=== PATIENT | female | born 1960 | race Caucasian/White ===

== ENCOUNTER 2018-03-22 23:45 | Emergency (ER) | payer MEDICAID ==
[~2018-03-22] VITALS: Ht 165.1 cm; Wt 70.0 kg
[~2018-03-22 23:45] MED LIST: ASPI-1264 PO; ATOR20TA PO; BUPR1PAT TD; CALC600T2 PO; CIME800T PO; CLOP75TA15 PO; ERGO500014 PO; LISI40TA4 PO; MELO15TA13 PO; NORT25CA5 PO; ONDA4TAB9 SL; PREVCR VG; RANI25VI; SYN0.088T PO; TIZA-248 PO; VARE0.5T PO
[2018-03-23 00:44] VITALS: BP 125/78
== END 2018-03-23 01:51 | disposition home or self-care (01) ==
LOC: ER 23:46
DX: S93.601A Unspecified sprain of right foot, initial encounter (principal); I10 Essential (primary) hypertension; F17.200 Nicotine dependence, unspecified, uncomplicated; J44.9 Chronic obstructive pulmonary disease, unspecified; E03.9 Hypothyroidism, unspecified; Z90.710 Acquired absence of both cervix and uterus; Z98.890 Other specified postprocedural states; Z79.82 Long term (current) use of aspirin; Z79.899 Other long term (current) drug therapy; W16.012A Fall into swimming pool striking water surface causing other injury, initial encounter; Y93.11 Activity, swimming; Y92.89 Other specified places as the place of occurrence of the external cause; Y99.8 Other external cause status
CPT/HCPCS: 73660; 99284; A6449

== ENCOUNTER 2019-11-08 20:23 | Inpatient (IN) | payer MEDICAID ==
[~2019-11-08] VITALS: Ht 165.1 cm; Wt 68.0 kg
[~2019-11-08 20:23] MED LIST changes: -TIZA-248 PO; +TIZA4TAB5 PO
[2019-11-08] MEDS ORDERED: acetaminophen 325mg tablet PO ONE (20:45)
[2019-11-08] MEDS ORDERED: methylPREDNISolone sod succ 125mg/2ml vial IV ONE (21:00)
[2019-11-08] MEDS ORDERED: azithromycin/NS 500mg/250ml 250 ML IV ONE (21:00)
[2019-11-08] MEDS ORDERED: CefTRIAXone/D5W-Rocephin 1gm 50 ML IV ONE (21:00)
[2019-11-08] MEDS ORDERED: ipratropium/albuterol 3ml nebule NEB ONE (21:00)
[2019-11-08 21:10] LABS: EOSINOPHILS % (AUTO) 0 % (0-6); HEMOGLOBIN 14.2 g/dl (12.0-16.0); LYMPHOCYTES # (AUTO) 0.3 X10'3 (1.1-4.8); MONOCYTES # (AUTO) 0.4 X10'3 (0-0.9); NEUTROPHILS # (AUTO) 7.6 X10'3 (1.8-7.7)
[2019-11-08 21:13] LABS: BASOPHILS % (AUTO) 0.2 % (0-1); LYMPHOCYTES % (AUTO) 3.6 % (21-51); MEAN CORPUSCULAR HGB CONC 34.7 g/dL (33.0-36.5); MEAN CORPUSCULAR VOLUME 86.4 FL (78-98); MEAN PLATELET VOLUME 7.5 FL (7.4-10.4); MONOCYTES % (AUTO) 4.8 % (2-12); NEUTROPHILS % (AUTO) 91.4 % (42-75); PLATELET COUNT 173 X10'3 (140-440); RED BLOOD COUNT 4.74 X10'6 (4.20-5.60); RED CELL DISTRIBUTION WIDTH 14.8 % (11.5-14.5); WHITE BLOOD COUNT 8.3 X10'3 (4.5-11.0)
[2019-11-08 21:17] LABS: ALANINE AMINOTRANSFERASE 24 U/L (12-78); ALBUMIN 3.6 G/DL (3.4-5.0); ALBUMIN/GLOBULIN RATIO 0.9 (1.1-1.5); ALKALINE PHOSPHATASE 143 IU/L (46-116); ANION GAP 10 (8-16); ASPARTATE AMINO TRANSFERASE 31 U/L (10-37); BILIRUBIN,TOTAL 0.3 MG/DL (0.1-1.0); BLOOD UREA NITROGEN 15 MG/DL (7-18); CALCIUM 8.7 MG/DL (8.5-10.1); CHLORIDE 95 MMOL/L (99-107); CREATININE 1.07 MG/DL (0.40-0.90); GLUCOSE 121 MG/DL (70-104); SODIUM 128 MMOL/L (135-145); TOTAL CARBON DIOXIDE 23.2 MMOL/L (24-32); TOTAL PROTEIN 7.7 G/DL (6.4-8.2); eGFR 52 ML/MIN
[2019-11-08] MEDS ORDERED: ondansetron/PF 4mg/2ml inj IV ONE (21:30)
[2019-11-08] MEDS ORDERED: oseltamivir phos 75mg capsule PO ONE (21:35)
[2019-11-08 21:42] LABS: PARTIAL THROMBOPLASTIN TIME 36 SECONDS (22-32)
[2019-11-08] MEDS ORDERED: ondansetron/PF 4mg/2ml inj IV PRN (22:20)
[2019-11-08] MEDS ORDERED: ipratropium/albuterol 3ml nebule NEB PRN (22:20)
[2019-11-08] MEDS ORDERED: magnesium 2GM in 50ml NS 50 ML IV PRN (22:20)
[2019-11-08] MEDS ORDERED: potassium Cl 20 mEq SR tablet PO PRN ×2 (22:20)
[2019-11-08] MEDS ORDERED: magnesium Cl slow-release 64mg tablet PO PRN (22:20)
[2019-11-08] MEDS ORDERED: magnesium hydroxide 30ml (MOM) UD suspension PO PRN (22:20)
[2019-11-08] MEDS ORDERED: mag hydrox/Alum hydrox/simeth 30ml oral suspension PO PRN (22:20)
[2019-11-08] MEDS ORDERED: magnesium 4gm in 100ml NS 100 ML IV PRN (22:20)
[2019-11-08] MEDS ORDERED: potassium CL 10mEq/100ml bag 100 ML IV PRN ×2 (22:20)
[2019-11-08] MEDS ORDERED: acetaminophen 325mg tablet PO PRN (22:20)
[2019-11-08] MEDS ORDERED: PRAV40TA3 PO (22:22)
[2019-11-08] MEDS ORDERED: CHOL100025 PO (22:22)
[2019-11-08] MEDS ORDERED: MAGN500C16 PO (22:22)
[2019-11-08] MEDS ORDERED: ESTR0.5T PO (22:22)
[2019-11-08] MEDS ORDERED: DILT120C19 PO (22:22)
[2019-11-08] MEDS ORDERED: CALC600T82 PO (22:22)
[2019-11-08] MEDS ORDERED: LISI-600 PO (22:22)
[2019-11-08] MEDS ORDERED: ASCO500C17 PO (22:22)
--- NOTE | 2019-11-08 23:30 | NUR ---
Patient in ER to be transferred to room GEGE 349. I have received report from DEB Estrada and had the opportunity to ask questions and assume patient care.
[2019-11-08 23:55] VITALS: BP 119/77
[2019-11-09] MEDS ORDERED: tizanidine 4mg tablet PO PRN (00:20)
[2019-11-09 05:58] LABS: BASOPHILS % (AUTO) 0.1 % (0-1); EOSINOPHILS % (AUTO) 0 % (0-6); HEMOGLOBIN 13.8 g/dl (12.0-16.0); LYMPHOCYTES # (AUTO) 0.4 X10'3 (1.1-4.8); LYMPHOCYTES % (AUTO) 4.3 % (21-51); MEAN CORPUSCULAR HEMOGLOBIN 29.7 PG (27.0-31.0); MEAN CORPUSCULAR HGB CONC 34.4 g/dL (33.0-36.5); MEAN CORPUSCULAR VOLUME 86.2 FL (78-98); MEAN PLATELET VOLUME 7.6 FL (7.4-10.4); MONOCYTES # (AUTO) 0.5 X10'3 (0-0.9); MONOCYTES % (AUTO) 4.7 % (2-12); NEUTROPHILS % (AUTO) 90.9 % (42-75); PLATELET COUNT 172 X10'3 (140-440); RED BLOOD COUNT 4.64 X10'6 (4.20-5.60); RED CELL DISTRIBUTION WIDTH 14.8 % (11.5-14.5); WHITE BLOOD COUNT 9.9 X10'3 (4.5-11.0)
[2019-11-09 06:07] LABS: ALBUMIN 3.2 G/DL (3.4-5.0); ANION GAP 8 (8-16); BLOOD UREA NITROGEN 14 MG/DL (7-18); BUN/CREATININE RATIO 13.9 (6.6-38.0); CALCIUM 8.4 MG/DL (8.5-10.1); CHLORIDE 96 MMOL/L (99-107); CREATININE 1.01 MG/DL (0.40-0.90); GLUCOSE 136 MG/DL (70-104); MAGNESIUM 1.8 MG/DL (1.5-2.4); POTASSIUM 4.3 MMOL/L (3.5-5.1); SODIUM 130 MMOL/L (135-145); TOTAL CARBON DIOXIDE 25.6 MMOL/L (24-32); eGFR 56 ML/MIN
--- NOTE | 2019-11-09 06:24 | NUR ---
Problems reprioritized. Patient report given, questions answered & plan of care reviewed with DEB Sandoval.
[2019-11-09] MEDS: K and/or MAG REPLACEMENT MC SCH ×2 (06:35→19:16)
--- NOTE | 2019-11-09 06:48 | NUR ---
Patient in room GEGE 349. I have received report from DEVENDRA BOYD and had the opportunity to ask questions and assume patient care.
[2019-11-09 07:00] VITALS: BP 141/83
[2019-11-09] MEDS: ipratropium/albuterol 3ml nebule NEB SCH ×4 (07:34→20:12)
[2019-11-09] MEDS: diltiazem CD 120mg capsule (once-daily) PO SCH (07:49)
[2019-11-09] MEDS: ascorbic acid 500mg tablet PO SCH (07:49)
[2019-11-09] MEDS: levoTHYROXINE 75mcg tablet PO SCH (07:49)
[2019-11-09] MEDS: predniSONE 20 mg tablet PO SCH (07:49)
[2019-11-09] MEDS: CefTRIAXone 2gm/D5W 50ml 50 ML IV SCH (07:49)
[2019-11-09] MEDS: azithromycin 250mg tablet PO SCH (07:49)
[2019-11-09] MEDS: lactobacillus rhamnosus 10,000 MMU CELLS/CAPSULE PO SCH ×2 (07:49→20:55)
[2019-11-09] MEDS: aspirin 325mg tablet PO SCH (07:49)
[2019-11-09] MEDS: vitamin D (cholecalciferol) 1,000 unit tablet PO SCH (07:50)
[2019-11-09] MEDS: lisinopril 20mg tablet PO SCH (07:50)
[2019-11-09] MEDS: pravastatin 40mg tablet PO SCH (07:50)
[2019-11-09] MEDS: calcium carbonate 500mg tablet PO SCH (07:50)
[2019-11-09] MEDS: enoxaparin 40mg/0.4ml syringe SQ SCH (07:51)
[2019-11-09] MEDS: MELOXICAM 15 MG PO SCH (08:00)
[2019-11-09] MEDS: acetaminophen 325mg tablet PO PRN ×2 (08:07→20:55)
--- NOTE | 2019-11-09 08:41 | NUR ---
Primary RN took patient off oxygen and I rechecked patients oxygen level and she was 87% on RA. Placed patient back on 2L oxygen via NC
[2019-11-09 11:57] VITALS: BP 113/65
[2019-11-09 18:00] VITALS: BP 118/78
--- NOTE | 2019-11-09 18:29 | NUR ---
Problems reprioritized. Patient report given, questions answered & plan of care reviewed with BLAKE RN.
--- NOTE | 2019-11-09 18:30 | NUR ---
Patient in room GEGE 349. I have received report from Lori BOYD and had the opportunity to ask questions and assume patient care.
[2019-11-09] MEDS ORDERED: nortriptyline 25mg capsule PO SCH (21:00)
[2019-11-10] VITALS: BP 92/64
--- NOTE | 2019-11-10 06:13 | NUR ---
Problems reprioritized. Patient report given, questions answered & plan of care reviewed with Lori BOYD.
[2019-11-10 06:17] LABS: BASOPHILS % (AUTO) 0.1 % (0-1); EOSINOPHILS % (AUTO) 0 % (0-6); HEMATOCRIT 37.1 % (35.0-45.0); HEMOGLOBIN 12.7 g/dl (12.0-16.0); LYMPHOCYTES % (AUTO) 10.9 % (21-51); MEAN CORPUSCULAR HEMOGLOBIN 29.3 PG (27.0-31.0); MEAN CORPUSCULAR HGB CONC 34.3 g/dL (33.0-36.5); MEAN CORPUSCULAR VOLUME 85.6 FL (78-98); MEAN PLATELET VOLUME 7.5 FL (7.4-10.4); MONOCYTES # (AUTO) 0.5 X10'3 (0-0.9); MONOCYTES % (AUTO) 5.8 % (2-12); NEUTROPHILS # (AUTO) 7.7 X10'3 (1.8-7.7); NEUTROPHILS % (AUTO) 83.2 % (42-75); PLATELET COUNT 171 X10'3 (140-440); RED BLOOD COUNT 4.34 X10'6 (4.20-5.60); RED CELL DISTRIBUTION WIDTH 14.4 % (11.5-14.5); WHITE BLOOD COUNT 9.2 X10'3 (4.5-11.0)
--- NOTE | 2019-11-10 06:26 | NUR ---
Patient in room GEGE 349. I have received report from BLAKE BOYD and had the opportunity to ask questions and assume patient care.
[2019-11-10 06:46] LABS: ALBUMIN 2.8 G/DL (3.4-5.0); ANION GAP 10 (8-16); BLOOD UREA NITROGEN 21 MG/DL (7-18); BUN/CREATININE RATIO 23.1 (6.6-38.0); CALCIUM 8.7 MG/DL (8.5-10.1); CHLORIDE 95 MMOL/L (99-107); CREATININE 0.91 MG/DL (0.40-0.90); GLUCOSE 114 MG/DL (70-104); MAGNESIUM 1.7 MG/DL (1.5-2.4); POTASSIUM 3.4 MMOL/L (3.5-5.1); SODIUM 130 MMOL/L (135-145); TOTAL CARBON DIOXIDE 25.4 MMOL/L (24-32); eGFR 63 ML/MIN
[2019-11-10 07:00] VITALS: BP 98/52
[2019-11-10] MEDS: ipratropium/albuterol 3ml nebule NEB SCH ×2 (07:03→10:46)
[2019-11-10] MEDS: K and/or MAG REPLACEMENT MC SCH (08:00)
[2019-11-10] MEDS: diltiazem CD 120mg capsule (once-daily) PO SCH (08:00)
[2019-11-10] MEDS: MELOXICAM 15 MG PO SCH (08:00)
[2019-11-10] MEDS: lisinopril 20mg tablet PO SCH (08:00)
[2019-11-10] MEDS: calcium carbonate 500mg tablet PO SCH (08:47)
[2019-11-10] MEDS: azithromycin 250mg tablet PO SCH (08:47)
[2019-11-10] MEDS: vitamin D (cholecalciferol) 1,000 unit tablet PO SCH (08:47)
[2019-11-10] MEDS: ascorbic acid 500mg tablet PO SCH (08:47)
[2019-11-10] MEDS: aspirin 325mg tablet PO SCH (08:47)
[2019-11-10] MEDS: CefTRIAXone 2gm/D5W 50ml 50 ML IV SCH (08:48)
[2019-11-10] MEDS: levoTHYROXINE 75mcg tablet PO SCH (08:49)
[2019-11-10] MEDS: predniSONE 20 mg tablet PO SCH (08:50)
[2019-11-10] MEDS: enoxaparin 40mg/0.4ml syringe SQ SCH (08:50)
[2019-11-10] MEDS: lactobacillus rhamnosus 10,000 MMU CELLS/CAPSULE PO SCH (08:50)
[2019-11-10] MEDS: pravastatin 40mg tablet PO SCH (08:51)
--- NOTE | 2019-11-10 09:40 | NUR ---
O2 Sat at rest on room air:___% If below 89%: Recovery O2 Sat at rest on ___LPM:___%:___% via (mask/nasal cannula, etc..) No further documentation is necessary. If O2 Sat did not drop below 89% on room air,ambulate patient on room air. O2 Sat while ambulating on room air:_86__% Recovery O2 Sat while ambulating on _2__LPM:_90__% No further documentation is necessary. If patient does not drop below 89% while ambulating, he/she does not qualify for home O2.
[2019-11-10] MEDS ORDERED: ALBU18HF2 IH (10:15)
[2019-11-10] MEDS ORDERED: CEFD300C3 PO (10:15)
[2019-11-10] MEDS ORDERED: AZI25OT PO (10:15)
[2019-11-10] MEDS ORDERED: FLUT1DIS4 INH (10:15)
--- NOTE | 2019-11-10 10:29 | NUR ---
O2 Sat at rest on room air:_88__% If below 89%: Recovery O2 Sat at rest on ___LPM:___%:___% via (mask/nasal cannula, etc..) No further documentation is necessary. If O2 Sat did not drop below 89% on room air,ambulate patient on room air. O2 Sat while ambulating on room air:_86__% Recovery O2 Sat while ambulating on __2_LPM:_90-94__% No further documentation is necessary. If patient does not drop below 89% while ambulating, he/she does not qualify for home O2.
--- NOTE | 2019-11-10 12:15 | NUR ---
PAGED DR NAPOLES PAGER ID: [phone] MESSAGE: JERRI MCRAE. BP . SURG BANNER [id number]
[2019-11-10 12:16] VITALS: BP 89/57
--- NOTE | 2019-11-10 13:10 | NUR ---
SPOKE TO DR NAPOLES RE DECREASED BP. STATES THAT PT IS OK TO DC HOWEVER SHE NEEDS TO MAKE FU APPT WITH PCP RE BP MEDS AND POSSIBLE ADJUSTMENTS. WILL NOTIFY PT.
[2019-11-10 13:27] VITALS: BP 113/71
--- NOTE | 2019-11-10 13:27 | NUR ---
CURRENT BP 113/71 HR 92
--- NOTE | 2019-11-10 15:02 | NUR ---
Called discharge prescription to [facility] to Pharmacist Emeka.
--- NOTE | 2019-11-10 15:22 | NUR ---
PT DISCHARGED IN STABLE CONDITION. LEFT IN PRIVATE VEHICLE WITH FAMILY. IV DC CANULA INTACT. FOLLOW UP INSTRUCTIONS GIVEN, ALL QUESTIONS ANSWERED. HOME 02 SENT WITH PT. ALL BELONGINGS IN HAND. Addendum: 11/10/19 at 1523 by Gilma Perez RN Amended: Links added.
== END 2019-11-10 15:01 | disposition home or self-care (01) | DRG 720 ==
LOC: ER 20:24 → ED HOLD 22:24 → SUR 3N 23:55
PROVIDERS: ADMIT Hospitalist; ATTEND Hospitalist
DX: A41.9 Sepsis, unspecified organism (principal); E87.1 Hypo-osmolality and hyponatremia; Z99.81 Dependence on supplemental oxygen; E03.9 Hypothyroidism, unspecified; E78.5 Hyperlipidemia, unspecified; F17.200 Nicotine dependence, unspecified, uncomplicated; I10 Essential (primary) hypertension; J44.1 Chronic obstructive pulmonary disease with (acute) exacerbation; Z82.49 Family history of ischemic heart disease and other diseases of the circulatory system; Z90.710 Acquired absence of both cervix and uterus; Z79.899 Other long term (current) drug therapy; Z79.82 Long term (current) use of aspirin
CPT/HCPCS: 36415; 71045; 80048; 80053; 83605; 83735; 83880; 84145; 84484; 85025; 85610; 85730; 87040; 87081; 87502; 87503; 93005; 94640; 94760; 96365; 96375; 99285; G0378; J0456; J0696; J1650; J2405; J2930; J7512

== ENCOUNTER 2020-01-23 09:38 | Outpatient (CLI) | payer MEDICAID ==
[~2020-01-23 09:38] MED LIST changes: +ALBU18HF2 IH; +ASCO500C17 PO; -ATOR20TA PO; -BUPR1PAT TD; -CALC600T2 PO; +CALC600T82 PO; +CHOL100025 PO; -CIME800T PO; -CLOP75TA15 PO; +DILT120C19 PO; +DOCU100C40 PO; -ERGO500014 PO; +ESTR0.5T PO; +LACT1CAP26 PO; +LEVO500T2 PO; +LISI-600 PO; -LISI40TA4 PO; +MAGN500C16 PO; -MELO15TA13 PO; +METH12DI SQ; -ONDA4TAB9 SL; +PRAV40TA3 PO; -PREVCR VG; -RANI25VI; +TIOT4MIS2 INH; -VARE0.5T PO
[2020-01-23] MEDS ORDERED: iohexol 300mg/ml 100ml inj. ONE (10:00)
== END 2020-01-23 23:59 | disposition home or self-care (01) ==
LOC: 64 CT 09:38
PROVIDERS: ATTEND Surgery
DX: N20.0 Calculus of kidney (principal); K80.20 Calculus of gallbladder without cholecystitis without obstruction; I71.4 Abdominal aortic aneurysm, without rupture
CPT/HCPCS: 74177; Q9967

== ENCOUNTER 2020-09-28 16:29 | Inpatient (IN) | payer MEDICAID ==
[~2020-09-28] VITALS: Ht 165.1 cm; Wt 68.2 kg
[~2020-09-28 16:29] MED LIST changes: -LEVO500T2 PO
[2020-09-28 17:44] LABS: BASOPHILS % (AUTO) 0.2 % (0-1); EOSINOPHILS % (AUTO) 0.5 % (0-6); LYMPHOCYTES # (AUTO) 0.8 X10'3 (1.1-4.8); MEAN CORPUSCULAR HEMOGLOBIN 30.9 PG (27.0-31.0); MEAN CORPUSCULAR HGB CONC 34.6 g/dL (33.0-36.5); MEAN CORPUSCULAR VOLUME 89.2 FL (78-98); MEAN PLATELET VOLUME 7.3 FL (7.4-10.4); MONOCYTES # (AUTO) 0.8 X10'3 (0-0.9); MONOCYTES % (AUTO) 9.7 % (2-12); NEUTROPHILS # (AUTO) 6.8 X10'3 (1.8-7.7); NEUTROPHILS % (AUTO) 80.6 % (42-75); PLATELET COUNT 311 X10'3 (140-440); WHITE BLOOD COUNT 8.5 X10'3 (4.5-11.0)
[2020-09-28 17:55] LABS: ALANINE AMINOTRANSFERASE 19 U/L (12-78); ALBUMIN 3.9 G/DL (3.4-5.0); ALBUMIN/GLOBULIN RATIO 0.9 (1.1-1.5); ALKALINE PHOSPHATASE 158 IU/L (46-116); ANION GAP 10 (8-16); ASPARTATE AMINO TRANSFERASE 13 U/L (10-37); BILIRUBIN,TOTAL 0.5 MG/DL (0.1-1.0); BLOOD UREA NITROGEN 53 MG/DL (7-18); BUN/CREATININE RATIO 22.8 (6.6-38.0); CALCIUM 9.4 MG/DL (8.5-10.1); CHLORIDE 89 MMOL/L (99-107); CREATININE 2.32 MG/DL (0.40-0.90); GLUCOSE 139 MG/DL (70-104); LIPASE 60 U/L (73-393); POTASSIUM 4.1 MMOL/L (3.5-5.1); SODIUM 133 MMOL/L (135-145); TOTAL CARBON DIOXIDE 34.4 MMOL/L (24-32); TOTAL PROTEIN 8.3 G/DL (6.4-8.2); eGFR 21 ML/MIN
[2020-09-28] MEDS ORDERED: ondansetron/PF 4mg/2ml inj IV ONE (18:00)
[2020-09-28] MEDS ORDERED: morphine 4 MG/ML inj SYRINge IV ONE (18:00)
[2020-09-28] MEDS ORDERED: normal saline 1000ml 1,000 ML IV ONE ×2 (18:00)
--- NOTE | 2020-09-28 18:16 | NUR ---
Pt medicated as ordered. Lab at bedside for lactic and BC draw.
--- NOTE | 2020-09-28 18:56 | NUR ---
PT JUST RETURNED FROM CT. PT REPORTS CONTINUED NAUSEA AND PAIN TO ABD OF 8 OUT OF 10.
[2020-09-28 19:17] LABS: CLARITY,URINE CLEAR (Clear); COLOR,URINE YELLOW (Yellow); GLUCOSE, URINE NEGATIVE (Neg); KETONES,URINE 15 mg/dl (Neg); LEUKOCYTE ESTERASE ,URINE NEGATIVE (Neg); NITRITES, URINE NEGATIVE (Neg); OCCULT BLOOD,URINE NEGATIVE (Neg); PROTEIN,URINE 30 mg/dl (Neg); UROBILINOGEN,URINE 0.2 E.U/dL (0.2-1.0)
[2020-09-28 19:20] LABS: UA COLLECTION TYPE STRAIGHT CATH
--- NOTE | 2020-09-28 19:21 | NUR ---
PT TO BE ADMITTED, JUST COLLECTED URINE VIA STRAIGHT CATH. ORDERS TO PLACE NG TUBE. REESE DE LEON TALKING WITH PT NOW ABOUT PLAN OF CARE.
[2020-09-28 19:34] LABS: BACTERIA,URINE FEW /HPF (Neg); RBC,URINE NONE SEEN /HPF (0-2); SQUAMOUS EPITHELIAL CELL,UR MODERATE /LPF (FEW); WBC,URINE NONE SEEN /HPF (0-4)
[2020-09-28] MEDS ORDERED: magnesium 4gm in 100ml NS 100 ML IV PRN (19:35)
[2020-09-28] MEDS ORDERED: magnesium hydroxide 30ml (MOM) UD suspension PO PRN (19:35)
[2020-09-28] MEDS ORDERED: potassium Cl 20 mEq SR tablet PO PRN ×2 (19:35)
[2020-09-28] MEDS ORDERED: magnesium 2GM in 50ml NS 50 ML IV PRN (19:35)
[2020-09-28] MEDS ORDERED: mag hydrox/Alum hydrox/simeth 30ml oral suspension PO PRN (19:35)
[2020-09-28] MEDS ORDERED: potassium Cl 40MEQ/1/2NS 520ml 520 ML IV PRN ×2 (19:35)
[2020-09-28] MEDS ORDERED: magnesium Cl slow-release 64mg tablet PO PRN (19:35)
[2020-09-28] MEDS ORDERED: acetaminophen 325mg tablet PO PRN (19:35)
--- NOTE | 2020-09-28 20:12 | NUR ---
Brooke Bernstein, [facility], [facility] [phone].
--- NOTE | 2020-09-28 20:15 | NUR ---
i spoke to daughter delma and updated on plan for surgery. she will tell the rest of the family.
--- NOTE | 2020-09-28 20:18 | NUR ---
preop coags and ekg just ordered. pt getting undressed now. she reports that Dr. Gannon toldl her he would be taking her to OR around 10 pm
[2020-09-28] MEDS ORDERED: MELO-102 PO (20:23)
[2020-09-28 20:32] LABS: PARTIAL THROMBOPLASTIN TIME 28 SECONDS (22-32)
[2020-09-28] MEDS: ondansetron/PF 4mg/2ml inj IV PRN (20:50)
[2020-09-28] MEDS: morphine 2 MG/ML inj. syringe IV PRN (20:50)
--- NOTE | 2020-09-28 20:55 | NUR ---
Pt has ipa 360a. Per OBIEE REPORT DEVELOPERSean BOYD, it will be a few hrs before they take her. rn chargeJolene BOYD , updated.
[2020-09-28] MEDS ORDERED: sevoflurane 250ml liquid IH ONE (22:46)
[2020-09-28] MEDS ORDERED: fentaNYL /PF 50mcg/ml 5ml ampule ONE (22:52)
[2020-09-28] MEDS ORDERED: propofol inj 20 ML IV ONE (22:52)
[2020-09-28] MEDS ORDERED: rocuronium 10mg/ml inj IV ONE (22:52)
[2020-09-28] MEDS ORDERED: midazolam 2 mg/2 ml injection ONE (22:52)
[2020-09-28] MEDS ORDERED: ceFOXitin 1000 MG inj ONE (23:11)
[2020-09-28] MEDS ORDERED: neostigmine methylsulfate 1 MG/ML 10ml vial ONE (23:38)
[2020-09-28] MEDS ORDERED: glycopyrrolate 0.2mg/ml inj ONE (23:39)
[2020-09-28 23:50] VITALS: BP 182/95
[2020-09-28 23:55] VITALS: BP 182/95
--- NOTE | 2020-09-28 23:55 | NUR ---
Received from OR via BED , accompanied by Anesthesiologist DR VALENCIA and report given by Anesthesiolgist. PATIENT WAKING UP, DENIES PAIN, V/S WNL, NEUROVASCULAR CHECKS INTACT, 20G PIV RUE, SCD ON,ABD PAD DRESSING TO ABDOMEN ABDOMEN CDI.
--- NOTE | 2020-09-28 23:58 | NUR ---
NG TO LEFT NARES LWS INTIRM,ITIENT
[2020-09-29] VITALS (16 sets, daily range): BP systolic 78–181; BP diastolic 44–90
[2020-09-29] MEDS ORDERED: morphine 4 MG/ML inj SYRINge IV PRN (00:20)
[2020-09-29] MEDS ORDERED: meperidine/PF 25mg/ml syringe IV PRN (00:20)
[2020-09-29] MEDS ORDERED: meperidine/PF 25mg/ml syringe ONE (00:27)
--- NOTE | 2020-09-29 00:35 | NUR ---
PATIENT A&OX4, 3/10 PAIN, V/S WNL, NEUROVASCULAR CHECKS INTACT, 20G PIV RUE, SCD ON,ABD PAD DRESSING TO ABDOMEN ABDOMEN CDI. F/C DRAINING CLEAR YELLOW URINE. NG TUBE TO RIGHT NARES LWS INTERMITTINT. PATIENT TAKEN TO 360A WITH ALL BELONGINGS AND HOOKED UP TO MONITORS IN ROOM AND REPORT GIVEN TO RN WHO HAS TAKEN OVER PATIENT CARE.
--- NOTE | 2020-09-29 00:45 | NUR ---
PATIENT ADMITTED TO ROOM 360A FROM RECOVERY ROOM AFTER EXPLORATORY LAPAROTOMY AND LYSIS OF ADHESION WAS DONE BY DR. VALERA. PLACED COMFORTABLE IN BED. VITAL SIGNS MONITORED PER POST OP FREQUENT VITALS.
[2020-09-29] MEDS: K and/or MAG REPLACEMENT MC SCH ×3 (00:59→19:56)
[2020-09-29] MEDS: normal saline 1000ml 1,000 ML IV SCH ×3 (01:01→16:45)
[2020-09-29] MEDS: morphine 2 MG/ML inj. syringe IV PRN ×4 (01:31→20:14)
[2020-09-29] MEDS ORDERED: albuterol 2.5 MG/3 ML nebule NEB PRN (05:05)
--- NOTE | 2020-09-29 06:22 | NUR ---
Problems reprioritized. Patient report given, questions answered & plan of care reviewed with DEMETRIO BOYD.
[2020-09-29 06:48] LABS: BASOPHILS % (AUTO) 0.2 % (0-1); EOSINOPHILS # (AUTO) 0.1 X10'3 (0-0.9); EOSINOPHILS % (AUTO) 2.3 % (0-6); HEMATOCRIT 42.8 % (35.0-45.0); HEMOGLOBIN 14.6 g/dl (12.0-16.0); LYMPHOCYTES # (AUTO) 0.7 X10'3 (1.1-4.8); LYMPHOCYTES % (AUTO) 13.3 % (21-51); MEAN CORPUSCULAR HEMOGLOBIN 31.1 PG (27.0-31.0); MEAN CORPUSCULAR HGB CONC 34.2 g/dL (33.0-36.5); MEAN PLATELET VOLUME 7.8 FL (7.4-10.4); MONOCYTES # (AUTO) 0.4 X10'3 (0-0.9); MONOCYTES % (AUTO) 7.4 % (2-12); NEUTROPHILS # (AUTO) 3.9 X10'3 (1.8-7.7); NEUTROPHILS % (AUTO) 76.8 % (42-75); PLATELET COUNT 245 X10'3 (140-440); RED CELL DISTRIBUTION WIDTH 13.9 % (11.5-14.5); WHITE BLOOD COUNT 5.1 X10'3 (4.5-11.0)
[2020-09-29 07:07] LABS: ALANINE AMINOTRANSFERASE 14 U/L (12-78); ALBUMIN 2.7 G/DL (3.4-5.0); ALBUMIN/GLOBULIN RATIO 0.8 (1.1-1.5); ALKALINE PHOSPHATASE 114 IU/L (46-116); ANION GAP 6 (8-16); ASPARTATE AMINO TRANSFERASE 12 U/L (10-37); BILIRUBIN,TOTAL 0.4 MG/DL (0.1-1.0); BLOOD UREA NITROGEN 45 MG/DL (7-18); BUN/CREATININE RATIO 35.7 (6.6-38.0); CALCIUM 7.9 MG/DL (8.5-10.1); CHLORIDE 102 MMOL/L (99-107); CREATININE 1.26 MG/DL (0.40-0.90); GLUCOSE 102 MG/DL (70-104); MAGNESIUM 2.9 MG/DL (1.5-2.4); POTASSIUM 3.5 MMOL/L (3.5-5.1); SODIUM 138 MMOL/L (135-145); TOTAL CARBON DIOXIDE 29.6 MMOL/L (24-32); TOTAL PROTEIN 6.1 G/DL (6.4-8.2); eGFR 43 ML/MIN
[2020-09-29] MEDS: diltiazem CD 120mg capsule (once-daily) PO SCH (07:58)
[2020-09-29] MEDS: levoTHYROXINE 75mcg tablet PO SCH (07:58)
[2020-09-29] MEDS: nortriptyline 25mg capsule PO SCH (07:58)
[2020-09-29] MEDS: ipratropium 0.5 MG/2.5ML nebule NEB SCH ×4 (08:00→20:16)
--- NOTE | 2020-09-29 11:09 | NUR ---
PAGE SENT TO RT: PATIENT HAS A DAILY NEB TX THAT WAS DUE AT 0800. THANKS! Addendum: 09/29/20 at 1111 by Angella Lee RN Severiano MCRAEA: PATIENT HAS A DAILY NEB TX THAT WAS DUE AT 0800. THANKS!
--- NOTE | 2020-09-29 13:03 | NUR ---
REMOVED NG TUBE AND JACQUES CATHETER. PATIENT TOLERATED WELL.
[2020-09-29] MEDS ORDERED: normal saline 250ml IV soln 250 ML IV ONE (13:10)
--- NOTE | 2020-09-29 13:20 | NUR ---
PAGE SENT TO RT: Severiano MCRAEA: PATIENT REQUESTING HER DAILY NEB TREATMENT. THANKS
--- NOTE | 2020-09-29 18:20 | NUR ---
Problems reprioritized. Patient report given, questions answered & plan of care reviewed with DEB OSEGUERA.
--- NOTE | 2020-09-29 18:30 | NUR ---
Patient in room GEGE 360. I have received report from DEMETRIO BOYD and had the opportunity to ask questions and assume patient care.
--- NOTE | 2020-09-29 20:00 | NUR ---
CORRECTION FOR LAST BOWEL MOVEMENT 09/23/20 Addendum: 09/30/20 at 0649 by Roslyn Thompson RN Amended: Links added.
[2020-09-29] MEDS: enoxaparin 40mg/0.4ml syringe SUBCUT SCH (20:05)
[2020-09-30] VITALS: BP 96/56
[2020-09-30] MEDS: ipratropium 0.5 MG/2.5ML nebule NEB SCH ×4 (02:36→20:36)
[2020-09-30] MEDS: normal saline 1000ml 1,000 ML IV SCH ×3 (03:43→23:02)
[2020-09-30] MEDS: morphine 2 MG/ML inj. syringe IV PRN ×4 (03:44→23:10)
--- NOTE | 2020-09-30 06:30 | NUR ---
Problems reprioritized. Patient report given, questions answered & plan of care reviewed with FLOYD BOYD.
--- NOTE | 2020-09-30 06:45 | NUR ---
Patient in room GEGE 360A. I have received report from AYO ROLLINS RN and had the opportunity to ask questions and assume patient care.
[2020-09-30 07:00] VITALS: BP 133/62
[2020-09-30 07:50] LABS: BASOPHILS % (AUTO) 0.1 % (0-1); EOSINOPHILS # (AUTO) 0.4 X10'3 (0-0.9); HEMATOCRIT 40.1 % (35.0-45.0); HEMOGLOBIN 13.5 g/dl (12.0-16.0); LYMPHOCYTES # (AUTO) 0.5 X10'3 (1.1-4.8); LYMPHOCYTES % (AUTO) 7.7 % (21-51); MEAN CORPUSCULAR HEMOGLOBIN 31.1 PG (27.0-31.0); MEAN CORPUSCULAR HGB CONC 33.6 g/dL (33.0-36.5); MEAN CORPUSCULAR VOLUME 92.5 FL (78-98); MEAN PLATELET VOLUME 7.7 FL (7.4-10.4); MONOCYTES # (AUTO) 0.6 X10'3 (0-0.9); MONOCYTES % (AUTO) 9.1 % (2-12); NEUTROPHILS # (AUTO) 5.1 X10'3 (1.8-7.7); NEUTROPHILS % (AUTO) 77.1 % (42-75); PLATELET COUNT 197 X10'3 (140-440); RED BLOOD COUNT 4.33 X10'6 (4.20-5.60); RED CELL DISTRIBUTION WIDTH 14.3 % (11.5-14.5); WHITE BLOOD COUNT 6.6 X10'3 (4.5-11.0)
[2020-09-30] MEDS: K and/or MAG REPLACEMENT MC SCH ×2 (08:00→20:00)
[2020-09-30] MEDS: nortriptyline 25mg capsule PO SCH (08:21)
[2020-09-30] MEDS: diltiazem CD 120mg capsule (once-daily) PO SCH (08:23)
[2020-09-30] MEDS: levoTHYROXINE 75mcg tablet PO SCH (08:24)
[2020-09-30 08:27] LABS: ALANINE AMINOTRANSFERASE 18 U/L (12-78); ALBUMIN 2.3 G/DL (3.4-5.0); ALBUMIN/GLOBULIN RATIO 0.6 (1.1-1.5); ALKALINE PHOSPHATASE 103 IU/L (46-116); ANION GAP 13 (8-16); ASPARTATE AMINO TRANSFERASE 20 U/L (10-37); BILIRUBIN,TOTAL 0.4 MG/DL (0.1-1.0); BLOOD UREA NITROGEN 30 MG/DL (7-18); BUN/CREATININE RATIO 38.5 (6.6-38.0); CALCIUM 7.7 MG/DL (8.5-10.1); CHLORIDE 105 MMOL/L (99-107); CREATININE 0.78 MG/DL (0.40-0.90); GLUCOSE 65 MG/DL (70-104); MAGNESIUM 2.6 MG/DL (1.5-2.4); POTASSIUM 3.6 MMOL/L (3.5-5.1); SODIUM 140 MMOL/L (135-145); TOTAL CARBON DIOXIDE 21.8 MMOL/L (24-32); TOTAL PROTEIN 5.9 G/DL (6.4-8.2); eGFR 75 ML/MIN
[2020-09-30 11:00] VITALS: BP 86/56
--- NOTE | 2020-09-30 16:20 | NUR ---
Problems reprioritized. Patient report given, questions answered & plan of care reviewed with AYO ROLLINS RN.
--- NOTE | 2020-09-30 18:30 | NUR ---
Patient in room GEGE 360. I have received report from FLOYD BOYD and had the opportunity to ask questions and assume patient care.
[2020-09-30 20:00] VITALS: BP 102/68
[2020-09-30] MEDS: enoxaparin 40mg/0.4ml syringe SUBCUT SCH (20:14)
[2020-09-30] MEDS: ondansetron/PF 4mg/2ml inj IV PRN (23:14)
[2020-10-01] VITALS: BP 129/63
[2020-10-01] MEDS: ipratropium 0.5 MG/2.5ML nebule NEB SCH ×4 (03:00→21:17)
--- NOTE | 2020-10-01 06:30 | NUR ---
Problems reprioritized. Patient report given, questions answered & plan of care reviewed with ANY BOYD.
[2020-10-01 06:41] LABS: BASOPHILS % (AUTO) 0.1 % (0-1); EOSINOPHILS # (AUTO) 0.5 X10'3 (0-0.9); EOSINOPHILS % (AUTO) 7.7 % (0-6); HEMATOCRIT 40.8 % (35.0-45.0); HEMOGLOBIN 13.8 g/dl (12.0-16.0); LYMPHOCYTES # (AUTO) 0.5 X10'3 (1.1-4.8); LYMPHOCYTES % (AUTO) 8.1 % (21-51); MEAN CORPUSCULAR HEMOGLOBIN 30.8 PG (27.0-31.0); MEAN CORPUSCULAR HGB CONC 33.8 g/dL (33.0-36.5); MEAN CORPUSCULAR VOLUME 91.2 FL (78-98); MONOCYTES # (AUTO) 0.6 X10'3 (0-0.9); MONOCYTES % (AUTO) 9.9 % (2-12); NEUTROPHILS # (AUTO) 4.8 X10'3 (1.8-7.7); NEUTROPHILS % (AUTO) 74.2 % (42-75); PLATELET COUNT 203 X10'3 (140-440); RED BLOOD COUNT 4.47 X10'6 (4.20-5.60); RED CELL DISTRIBUTION WIDTH 13.9 % (11.5-14.5); WHITE BLOOD COUNT 6.5 X10'3 (4.5-11.0)
[2020-10-01 07:00] VITALS: BP 120/60
[2020-10-01 07:04] LABS: ALANINE AMINOTRANSFERASE 19 U/L (12-78); ALBUMIN 2.3 G/DL (3.4-5.0); ALBUMIN/GLOBULIN RATIO 0.6 (1.1-1.5); ALKALINE PHOSPHATASE 109 IU/L (46-116); ANION GAP 13 (8-16); ASPARTATE AMINO TRANSFERASE 18 U/L (10-37); BILIRUBIN,TOTAL 0.4 MG/DL (0.1-1.0); BLOOD UREA NITROGEN 18 MG/DL (7-18); BUN/CREATININE RATIO 26.5 (6.6-38.0); CALCIUM 8.7 MG/DL (8.5-10.1); CHLORIDE 104 MMOL/L (99-107); CREATININE 0.68 MG/DL (0.40-0.90); GLUCOSE 73 MG/DL (70-104); POTASSIUM 3.4 MMOL/L (3.5-5.1); SODIUM 139 MMOL/L (135-145); TOTAL CARBON DIOXIDE 22.4 MMOL/L (24-32); TOTAL PROTEIN 6.1 G/DL (6.4-8.2); eGFR 88 ML/MIN
[2020-10-01] MEDS: K and/or MAG REPLACEMENT MC SCH ×2 (08:00→20:00)
[2020-10-01] MEDS: morphine 2 MG/ML inj. syringe IV PRN (08:22)
[2020-10-01] MEDS: levoTHYROXINE 75mcg tablet PO SCH (08:22)
[2020-10-01] MEDS: nortriptyline 25mg capsule PO SCH (08:22)
[2020-10-01] MEDS: normal saline 1000ml 1,000 ML IV SCH ×2 (08:23→17:17)
[2020-10-01 11:00] VITALS: BP 89/56
[2020-10-01 11:46] VITALS: BP 88/50
[2020-10-01] MEDS: diltiazem CD 120mg capsule (once-daily) PO SCH (11:46)
--- NOTE | 2020-10-01 11:47 | NUR ---
BP checked manually, got 88/50, patient asymptomatic. BENITO Gutierrez reported to me that the BP reading she took was low. I notified Dr. Álvarez about this and that I did not even gave the Cardizem PO this am due to pattern of dropping BP after receiving Cardizem. He instructed me to d/c the Cardizem PO order.
--- NOTE | 2020-10-01 18:35 | NUR ---
Problems reprioritized. Patient report given, questions answered & plan of care reviewed with Best BOYD.
[2020-10-01 20:00] VITALS: BP 120/76
[2020-10-01] MEDS: enoxaparin 40mg/0.4ml syringe SUBCUT SCH (20:56)
[2020-10-02] VITALS: BP 150/71
[2020-10-02] MEDS: morphine 2 MG/ML inj. syringe IV PRN ×5 (01:00→16:06)
[2020-10-02] MEDS: ipratropium 0.5 MG/2.5ML nebule NEB SCH ×4 (03:05→21:22)
[2020-10-02] MEDS: normal saline 1000ml 1,000 ML IV SCH ×3 (03:35→23:35)
--- NOTE | 2020-10-02 06:00 | NUR ---
Patient in room GEGE 360. I have received report from Best BOYD and had the opportunity to ask questions and assume patient care.
[2020-10-02 06:33] LABS: BASOPHILS % (AUTO) 0.3 % (0-1); EOSINOPHILS # (AUTO) 0.5 X10'3 (0-0.9); EOSINOPHILS % (AUTO) 7.2 % (0-6); HEMATOCRIT 40.2 % (35.0-45.0); HEMOGLOBIN 13.2 g/dl (12.0-16.0); LYMPHOCYTES # (AUTO) 0.7 X10'3 (1.1-4.8); LYMPHOCYTES % (AUTO) 9.6 % (21-51); MEAN CORPUSCULAR HEMOGLOBIN 30.2 PG (27.0-31.0); MEAN CORPUSCULAR VOLUME 91.7 FL (78-98); MEAN PLATELET VOLUME 7.4 FL (7.4-10.4); MONOCYTES # (AUTO) 0.7 X10'3 (0-0.9); MONOCYTES % (AUTO) 10.5 % (2-12); NEUTROPHILS % (AUTO) 72.4 % (42-75); PLATELET COUNT 237 X10'3 (140-440); RED BLOOD COUNT 4.38 X10'6 (4.20-5.60); RED CELL DISTRIBUTION WIDTH 13.9 % (11.5-14.5); WHITE BLOOD COUNT 6.9 X10'3 (4.5-11.0)
[2020-10-02 07:00] VITALS: BP 143/84
[2020-10-02 07:05] LABS: ALANINE AMINOTRANSFERASE 21 U/L (12-78); ALBUMIN 2.3 G/DL (3.4-5.0); ALBUMIN/GLOBULIN RATIO 0.6 (1.1-1.5); ALKALINE PHOSPHATASE 99 IU/L (46-116); ANION GAP 15 (8-16); ASPARTATE AMINO TRANSFERASE 15 U/L (10-37); BILIRUBIN,TOTAL 0.4 MG/DL (0.1-1.0); BLOOD UREA NITROGEN 12 MG/DL (7-18); BUN/CREATININE RATIO 16.4 (6.6-38.0); CALCIUM 8.1 MG/DL (8.5-10.1); CHLORIDE 105 MMOL/L (99-107); CREATININE 0.73 MG/DL (0.40-0.90); GLUCOSE 68 MG/DL (70-104); MAGNESIUM 1.7 MG/DL (1.5-2.4); POTASSIUM 3.2 MMOL/L (3.5-5.1); SODIUM 141 MMOL/L (135-145); TOTAL CARBON DIOXIDE 20.7 MMOL/L (24-32); TOTAL PROTEIN 5.9 G/DL (6.4-8.2); eGFR 81 ML/MIN
[2020-10-02] MEDS: K and/or MAG REPLACEMENT MC SCH ×2 (08:00→20:00)
[2020-10-02] MEDS: levoTHYROXINE 75mcg tablet PO SCH (08:04)
[2020-10-02] MEDS: enoxaparin 40mg/0.4ml syringe SUBCUT SCH (08:04)
[2020-10-02] MEDS: nortriptyline 25mg capsule PO SCH (08:05)
--- NOTE | 2020-10-02 10:00 | NUR ---
Pt has loose congested cough. Non-productive. Encouraged to use IS and flutter valve q1h
[2020-10-02 11:30] VITALS: BP 114/74
[2020-10-02] MEDS ORDERED: magnesium Cl slow-release 64mg tablet PO PRN (12:00)
[2020-10-02] MEDS ORDERED: potassium Cl 20 mEq SR tablet PO PRN (12:00)
[2020-10-02] MEDS ORDERED: magnesium 4gm in 100ml NS 100 ML IV PRN (12:00)
[2020-10-02] MEDS: potassium Cl 40MEQ/1/2NS 520ml 520 ML IV PRN (13:00)
--- NOTE | 2020-10-02 13:00 | NUR ---
Continues to have loose congested cough. Using IS and flutter, walking and sitting in chair. 02 at 2L
--- NOTE | 2020-10-02 18:00 | NUR ---
Problems reprioritized. Patient report given, questions answered & plan of care reviewed with Best BOYD.
[2020-10-02 20:00] VITALS: BP 150/83
[2020-10-03] VITALS: BP 150/87
[2020-10-03] MEDS: morphine 2 MG/ML inj. syringe IV PRN ×2 (01:19→09:27)
[2020-10-03] MEDS: ipratropium 0.5 MG/2.5ML nebule NEB SCH ×4 (02:46→21:10)
--- NOTE | 2020-10-03 06:40 | NUR ---
Patient in room GEGE 360A. I have received report from DEB Jewell, and had the opportunity to ask questions and assume patient care.
[2020-10-03 06:45] LABS: BASOPHILS % (AUTO) 0.4 % (0-1); EOSINOPHILS # (AUTO) 0.6 X10'3 (0-0.9); EOSINOPHILS % (AUTO) 9.6 % (0-6); HEMATOCRIT 39.9 % (35.0-45.0); HEMOGLOBIN 13.7 g/dl (12.0-16.0); LYMPHOCYTES # (AUTO) 0.8 X10'3 (1.1-4.8); LYMPHOCYTES % (AUTO) 12.9 % (21-51); MEAN CORPUSCULAR HEMOGLOBIN 31.1 PG (27.0-31.0); MEAN CORPUSCULAR HGB CONC 34.2 g/dL (33.0-36.5); MEAN CORPUSCULAR VOLUME 90.9 FL (78-98); MEAN PLATELET VOLUME 7.2 FL (7.4-10.4); MONOCYTES # (AUTO) 0.7 X10'3 (0-0.9); MONOCYTES % (AUTO) 11.2 % (2-12); NEUTROPHILS # (AUTO) 4.3 X10'3 (1.8-7.7); NEUTROPHILS % (AUTO) 65.9 % (42-75); PLATELET COUNT 266 X10'3 (140-440); RED BLOOD COUNT 4.39 X10'6 (4.20-5.60); RED CELL DISTRIBUTION WIDTH 13.8 % (11.5-14.5); WHITE BLOOD COUNT 6.5 X10'3 (4.5-11.0)
[2020-10-03 07:19] LABS: ALANINE AMINOTRANSFERASE 21 U/L (12-78); ALBUMIN 2.4 G/DL (3.4-5.0); ALBUMIN/GLOBULIN RATIO 0.7 (1.1-1.5); ALKALINE PHOSPHATASE 97 IU/L (46-116); ANION GAP 13 (8-16); ASPARTATE AMINO TRANSFERASE 17 U/L (10-37); BILIRUBIN,TOTAL 0.5 MG/DL (0.1-1.0); BLOOD UREA NITROGEN 7 MG/DL (7-18); BUN/CREATININE RATIO 10.8 (6.6-38.0); CALCIUM 7.7 MG/DL (8.5-10.1); CHLORIDE 103 MMOL/L (99-107); CREATININE 0.65 MG/DL (0.40-0.90); GLUCOSE 67 MG/DL (70-104); MAGNESIUM 1.5 MG/DL (1.5-2.4); POTASSIUM 3.1 MMOL/L (3.5-5.1); SODIUM 136 MMOL/L (135-145); TOTAL CARBON DIOXIDE 19.7 MMOL/L (24-32); TOTAL PROTEIN 5.9 G/DL (6.4-8.2); eGFR > 90 ML/MIN
[2020-10-03 07:41] VITALS: BP 151/82
[2020-10-03] MEDS: K and/or MAG REPLACEMENT MC SCH ×2 (08:36→20:00)
[2020-10-03] MEDS: levoTHYROXINE 75mcg tablet PO SCH (08:53)
[2020-10-03] MEDS: normal saline 1000ml 1,000 ML IV SCH (08:53)
[2020-10-03] MEDS: nortriptyline 25mg capsule PO SCH (08:53)
[2020-10-03] MEDS: potassium Cl 40MEQ/1/2NS 520ml 520 ML IV PRN (09:28)
--- NOTE | 2020-10-03 11:19 | NUR ---
Initial: Pt admit with SBO, now s/p ex lap and Nikita 09/28. Pt initially NPO however has now been advanced to full liquids, pending documentation of PO intake since diet advancement. Pt previously on a clear liquid diet documented with 75-100% PO intake. LBM 09/23. Per physical assessment pt now passing flatus and bowel sounds present. Recommend diet advancement to low fiber as medically indicated. Will continue to follow closely. Recommendations: 1) Advance to low fiber diet as medically indicated in view of recent GI surgery 2) Monitor need for ONS 3) Bowel care per rx 4) Scaled weights per rx Addendum: 10/03/20 at [address] Amended: Links added.
[2020-10-03 11:39] VITALS: BP 153/88
--- NOTE | 2020-10-03 14:00 | NUR ---
Patient report given, questions answered & plan of care reviewed with DEB Yun.
--- NOTE | 2020-10-03 14:40 | NUR ---
Patient in room GEGE 360. I have received report from Candice BOYD and had the opportunity to ask questions and assume patient care. Addendum: 10/03/20 at 1925 by Court Catalan RN Amended: Links added.
--- NOTE | 2020-10-03 14:40 | NUR ---
Patient in room GEGE 360. I have received report from Candice BOYD and had the opportunity to ask questions and assume patient care. Addendum: 10/03/20 at [address] Catalan RN Amended: Links added.
--- NOTE | 2020-10-03 15:00 | NUR ---
Pt. awake sitting in the recliner A & O. No c/o SOB at this time o2 at 2 l via n/c. Midline incision with drsging in place CDI at this time. K + IV running at 70ml/hr patent. Call light with reach. Addendum: 10/03/20 at 1945 by Court Catalna RN Amended: Links added.
[2020-10-03] MEDS: oxyCODONE/APAP 5-325mg tablet PO PRN (15:17)
--- NOTE | 2020-10-03 16:00 | NUR ---
1400 SVN not given. Pt. sleeping without resp. distress
--- NOTE | 2020-10-03 18:00 | NUR ---
Problems reprioritized. Patient report given, questions answered & plan of care reviewed with Cindy BOYD. Addendum: 10/03/20 at 1939 by Court Catalan RN Amended: Links added.
--- NOTE | 2020-10-03 18:00 | NUR ---
Problems reprioritized. Patient report given, questions answered & plan of care reviewed with Cindy BOYD. Addendum: 10/03/20 at 1926 [address] Catalan RN Amended: Links added.
--- NOTE | 2020-10-03 18:00 | NUR ---
Problems reprioritized. Patient report given, questions answered & plan of care reviewed with Cindy BOYD. Addendum: 10/03/20 at 1946 by Court Catalan RN Amended: Links added.
--- NOTE | 2020-10-03 18:45 | NUR ---
Patient in room GEGE 360. I have received report from Court BOYD and had the opportunity to ask questions and assume patient care.
[2020-10-03 19:00] VITALS: BP 133/84
[2020-10-03] MEDS: enoxaparin 40mg/0.4ml syringe SUBCUT SCH (20:56)
[2020-10-04 00:26] VITALS: BP 133/90
[2020-10-04] MEDS: oxyCODONE/APAP 5-325mg tablet PO PRN ×4 (00:40→18:01)
[2020-10-04] MEDS: ipratropium 0.5 MG/2.5ML nebule NEB SCH ×4 (02:50→21:33)
--- NOTE | 2020-10-04 06:40 | NUR ---
Problems reprioritized. Patient report given, questions answered & plan of care reviewed with Ralph BOYD.
--- NOTE | 2020-10-04 06:42 | NUR ---
Patient in room GEGE 360. I have received report from DEB White and had the opportunity to ask questions and assume patient care.
--- NOTE | 2020-10-04 07:04 | NUR ---
Dr Álvarez PAGER ID: [phone] MESSAGE: 360A- Gerda Moore- no orders for CBC or CMP. K has been trending down since 10/01 and has not been replaced. Yesterday was 3.1. OK to order cbc and cmp for today? thank you- Ralph 0521
[2020-10-04] MEDS: levoTHYROXINE 75mcg tablet PO SCH (07:08)
[2020-10-04] MEDS: nortriptyline 25mg capsule PO SCH (07:08)
[2020-10-04 08:00] VITALS: BP 134/91
[2020-10-04] MEDS: K and/or MAG REPLACEMENT MC SCH ×2 (08:00→19:42)
[2020-10-04 08:02] LABS: MAGNESIUM 1.6 MG/DL (1.5-2.4)
--- NOTE | 2020-10-04 10:20 | NUR ---
O2 Sat at rest on room air:_92__% If below 89%: Recovery O2 Sat at rest on ___LPM:___%:___% via (mask/nasal cannula, etc..) No further documentation is necessary. If O2 Sat did not drop below 89% on room air,ambulate patient on room air. O2 Sat while ambulating on room air:_90__% Recovery O2 Sat while ambulating on ___LPM:___% No further documentation is necessary. If patient does not drop below 89% while ambulating, he/she does not qualify for home O2. Addendum: 10/04/20 at 1023 by Ralph Nick RN Kenton GAMEZ in with patient. States patient "90% on RA and did not have any SOB and is doing even better after treatment." Patient sitting in chair and remains on RA with no s/s of acute distress and no complaints. Will continue to monitor.
[2020-10-04 11:03] LABS: POTASSIUM 3.4 MMOL/L (3.5-5.1)
[2020-10-04] MEDS: potassium Cl 20 mEq SR tablet PO PRN (11:26)
[2020-10-04 11:39] LABS: BASOPHILS % (AUTO) 0.4 % (0-1); EOSINOPHILS # (AUTO) 0.5 X10'3 (0-0.9); EOSINOPHILS % (AUTO) 6.9 % (0-6); HEMATOCRIT 39.2 % (35.0-45.0); HEMOGLOBIN 13.3 g/dl (12.0-16.0); LYMPHOCYTES # (AUTO) 0.8 X10'3 (1.1-4.8); LYMPHOCYTES % (AUTO) 11.9 % (21-51); MEAN CORPUSCULAR HEMOGLOBIN 30.4 PG (27.0-31.0); MEAN CORPUSCULAR VOLUME 89.6 FL (78-98); MEAN PLATELET VOLUME 7.2 FL (7.4-10.4); MONOCYTES # (AUTO) 0.7 X10'3 (0-0.9); MONOCYTES % (AUTO) 10.6 % (2-12); NEUTROPHILS # (AUTO) 4.8 X10'3 (1.8-7.7); NEUTROPHILS % (AUTO) 70.2 % (42-75); PLATELET COUNT 260 X10'3 (140-440); RED BLOOD COUNT 4.37 X10'6 (4.20-5.60); RED CELL DISTRIBUTION WIDTH 13.6 % (11.5-14.5); WHITE BLOOD COUNT 6.9 X10'3 (4.5-11.0)
[2020-10-04 11:47] LABS: ALANINE AMINOTRANSFERASE 19 U/L (12-78); ALBUMIN 2.4 G/DL (3.4-5.0); ALBUMIN/GLOBULIN RATIO 0.7 (1.1-1.5); ALKALINE PHOSPHATASE 94 IU/L (46-116); ANION GAP 7 (8-16); ASPARTATE AMINO TRANSFERASE 15 U/L (10-37); BILIRUBIN,TOTAL 0.3 MG/DL (0.1-1.0); BLOOD UREA NITROGEN 7 MG/DL (7-18); BUN/CREATININE RATIO 10.4 (6.6-38.0); CALCIUM 8.2 MG/DL (8.5-10.1); CHLORIDE 100 MMOL/L (99-107); CREATININE 0.67 MG/DL (0.40-0.90); GLUCOSE 93 MG/DL (70-104); MAGNESIUM 1.6 MG/DL (1.5-2.4); PHOSPHORUS 1.7 MG/DL (2.3-4.5); POTASSIUM 3.6 MMOL/L (3.5-5.1); SODIUM 138 MMOL/L (135-145); TOTAL PROTEIN 5.9 G/DL (6.4-8.2); eGFR 89 ML/MIN
[2020-10-04 12:15] VITALS: BP 107/79
[2020-10-04] MEDS: clotrimazole 10mg troche MM SCH ×2 (17:59→22:42)
--- NOTE | 2020-10-04 18:23 | NUR ---
Problems reprioritized. Patient report given, questions answered & plan of care reviewed with DEB White.
--- NOTE | 2020-10-04 18:47 | NUR ---
Problems reprioritized. Patient report given, questions answered & plan of care reviewed with Ralph BOYD.
[2020-10-04 19:00] VITALS: BP 110/66
[2020-10-04] MEDS: docusate sod 100mg capsule PO SCH (19:47)
[2020-10-04] MEDS: enoxaparin 40mg/0.4ml syringe SUBCUT SCH (19:49)
[2020-10-05] VITALS: BP 123/88
[2020-10-05] MEDS: oxyCODONE/APAP 5-325mg tablet PO PRN ×2 (00:09→05:02)
[2020-10-05] MEDS: ipratropium 0.5 MG/2.5ML nebule NEB SCH ×2 (03:39→08:30)
[2020-10-05] MEDS: clotrimazole 10mg troche MM SCH ×3 (05:05→14:00)
--- NOTE | 2020-10-05 06:38 | NUR ---
Patient in room GEGE 360A. I have received report from DEB GUAMAN and had the opportunity to ask questions and assume patient care.
[2020-10-05 06:45] LABS: BASOPHILS # (AUTO) 0.1 X10'3 (0-0.2); BASOPHILS % (AUTO) 0.7 % (0-1); EOSINOPHILS # (AUTO) 0.5 X10'3 (0-0.9); EOSINOPHILS % (AUTO) 6.1 % (0-6); HEMATOCRIT 37.2 % (35.0-45.0); HEMOGLOBIN 12.6 g/dl (12.0-16.0); LYMPHOCYTES # (AUTO) 1.1 X10'3 (1.1-4.8); LYMPHOCYTES % (AUTO) 12.5 % (21-51); MEAN CORPUSCULAR HEMOGLOBIN 30.7 PG (27.0-31.0); MEAN CORPUSCULAR HGB CONC 33.9 g/dL (33.0-36.5); MEAN CORPUSCULAR VOLUME 90.5 FL (78-98); MEAN PLATELET VOLUME 7.1 FL (7.4-10.4); MONOCYTES # (AUTO) 0.9 X10'3 (0-0.9); MONOCYTES % (AUTO) 10.4 % (2-12); NEUTROPHILS # (AUTO) 6.3 X10'3 (1.8-7.7); NEUTROPHILS % (AUTO) 70.3 % (42-75); PLATELET COUNT 259 X10'3 (140-440); RED BLOOD COUNT 4.11 X10'6 (4.20-5.60); RED CELL DISTRIBUTION WIDTH 13.6 % (11.5-14.5); WHITE BLOOD COUNT 8.9 X10'3 (4.5-11.0)
--- NOTE | 2020-10-05 06:45 | NUR ---
Problems reprioritized. Patient report given, questions answered & plan of care reviewed with Kasie BOYD.
[2020-10-05 06:55] LABS: ALANINE AMINOTRANSFERASE 19 U/L (12-78); ALBUMIN 2.2 G/DL (3.4-5.0); ALBUMIN/GLOBULIN RATIO 0.6 (1.1-1.5); ALKALINE PHOSPHATASE 89 IU/L (46-116); ANION GAP 5 (8-16); ASPARTATE AMINO TRANSFERASE 13 U/L (10-37); BILIRUBIN,TOTAL 0.3 MG/DL (0.1-1.0); BLOOD UREA NITROGEN 8 MG/DL (7-18); BUN/CREATININE RATIO 12.5 (6.6-38.0); CALCIUM 7.7 MG/DL (8.5-10.1); CHLORIDE 100 MMOL/L (99-107); CREATININE 0.64 MG/DL (0.40-0.90); GLUCOSE 83 MG/DL (70-104); MAGNESIUM 1.6 MG/DL (1.5-2.4); PHOSPHORUS 2.2 MG/DL (2.3-4.5); POTASSIUM 3.4 MMOL/L (3.5-5.1); SODIUM 135 MMOL/L (135-145); TOTAL PROTEIN 5.6 G/DL (6.4-8.2); eGFR > 90 ML/MIN
[2020-10-05 07:00] VITALS: BP 94/66
[2020-10-05] MEDS: K and/or MAG REPLACEMENT MC SCH (08:00)
[2020-10-05] MEDS: docusate sod 100mg capsule PO SCH (09:33)
[2020-10-05] MEDS: potassium Cl 20 mEq SR tablet PO PRN (09:33)
[2020-10-05] MEDS: nortriptyline 25mg capsule PO SCH (09:33)
[2020-10-05] MEDS: levoTHYROXINE 75mcg tablet PO SCH (09:33)
[2020-10-05 12:00] VITALS: BP 103/65
[2020-10-05] MEDS ORDERED: ASPI81TA52 PO (13:20)
--- NOTE | 2020-10-05 14:45 | NUR ---
PATIENT STABLE AND APPROPRIATE FOR DISCHARGE, IV TAKEN OUT, EDUCATION GIVEN, NEW MEDS SENT TO PREFERRED PHARMACY, ALL BELONGINGS SENT WITH PATIENT, PATIENT TAKEN TO LOBBY IN WHEELCHAIR TO AN AWAITING CAR WHERE FAMILY MEMBER WILL TAKE PATIENT HOME
== END 2020-10-05 14:47 | disposition home or self-care (01) | DRG 224 ==
LOC: ER 16:30 → ED HOLD 19:32 → SUR 3N 09-29 00:41
PROVIDERS: ADMIT Family Medicine; ATTEND Family Medicine
PROC: 0DN80ZZ Release Small Intestine, Open Approach (ICD-10-PCS; principal; 2020-09-28 22:46)
DX: K56.51 Intestinal adhesions [bands], with partial obstruction (principal); Z20.822 Contact with and (suspected) exposure to COVID-19; I25.10 Atherosclerotic heart disease of native coronary artery without angina pectoris; I10 Essential (primary) hypertension; J44.9 Chronic obstructive pulmonary disease, unspecified; E03.9 Hypothyroidism, unspecified; Z90.49 Acquired absence of other specified parts of digestive tract; Z90.710 Acquired absence of both cervix and uterus; Z82.49 Family history of ischemic heart disease and other diseases of the circulatory system; E78.5 Hyperlipidemia, unspecified; N17.9 Acute kidney failure, unspecified
CPT/HCPCS: 36415; 74176; 80053; 81001; 83605; 83690; 83735; 84100; 84132; 84443; 85025; 85610; 85730; 87081; 87635; 93005; 94640; 94760; 96374; 96375; 99285; A4618; A7000; C1758; G0378; J0694; J1650; J2175; J2250; J2270; J2405; J2704; J2710; J3010; J3480; J3490; J7030; J7050; J7120

== ENCOUNTER 2021-02-07 17:28 | Emergency (ER) | payer MEDICAID ==
[~2021-02-07] VITALS: Ht 166.4 cm; Wt 65.9 kg
[~2021-02-07 17:28] MED LIST changes: -ASPI-1264 PO; -LACT1CAP26 PO; -LISI-600 PO; +LISI20TA28 PO; -METH12DI SQ
[2021-02-07 17:57] LABS: BASOPHILS % (AUTO) 0.3 % (0-1); EOSINOPHILS % (AUTO) 0.1 % (0-6); HEMATOCRIT 41.3 % (35.0-45.0); LYMPHOCYTES # (AUTO) 0.7 X10'3 (1.1-4.8); LYMPHOCYTES % (AUTO) 5.5 % (21-51); MEAN CORPUSCULAR HEMOGLOBIN 30.4 PG (27.0-31.0); MEAN CORPUSCULAR HGB CONC 33.8 g/dL (33.0-36.5); MEAN CORPUSCULAR VOLUME 89.9 FL (78-98); MEAN PLATELET VOLUME 7.3 FL (7.4-10.4); MONOCYTES # (AUTO) 0.8 X10'3 (0-0.9); NEUTROPHILS # (AUTO) 11.6 X10'3 (1.8-7.7); NEUTROPHILS % (AUTO) 88.1 % (42-75); PLATELET COUNT 217 X10'3 (140-440); RED CELL DISTRIBUTION WIDTH 15.1 % (11.5-14.5); WHITE BLOOD COUNT 13.2 X10'3 (4.5-11.0)
[2021-02-07 18:12] LABS: ALANINE AMINOTRANSFERASE 19 U/L (12-78); ALBUMIN 3.1 G/DL (3.4-5.0); ALBUMIN/GLOBULIN RATIO 0.9 (1.1-1.5); ALKALINE PHOSPHATASE 263 IU/L (46-116); ANION GAP 11 (8-16); ASPARTATE AMINO TRANSFERASE 19 U/L (10-37); BILIRUBIN,TOTAL 0.3 MG/DL (0.1-1.0); BLOOD UREA NITROGEN 26 MG/DL (7-18); BUN/CREATININE RATIO 19.5 (6.6-38.0); CALCIUM 8.3 MG/DL (8.5-10.1); CHLORIDE 103 MMOL/L (99-107); CREATININE 1.33 MG/DL (0.40-0.90); GLUCOSE 124 MG/DL (70-104); LIPASE 75 U/L (73-393); POTASSIUM 4.5 MMOL/L (3.5-5.1); SODIUM 138 MMOL/L (135-145); TOTAL CARBON DIOXIDE 24.3 MMOL/L (24-32); TOTAL PROTEIN 6.7 G/DL (6.4-8.2); eGFR 41 ML/MIN
[2021-02-07 20:05] VITALS: BP 114/86
== END 2021-02-07 20:07 | disposition home or self-care (01) ==
LOC: ER 17:29
DX: K62.5 Hemorrhage of anus and rectum (principal); I25.10 Atherosclerotic heart disease of native coronary artery without angina pectoris; I10 Essential (primary) hypertension; J44.9 Chronic obstructive pulmonary disease, unspecified; E03.9 Hypothyroidism, unspecified; Z90.49 Acquired absence of other specified parts of digestive tract; Z90.710 Acquired absence of both cervix and uterus; Z98.890 Other specified postprocedural states; Z79.899 Other long term (current) drug therapy
CPT/HCPCS: 36415; 80053; 83690; 85025; 86885; 86900; 86901; 99283; 99284

== ENCOUNTER 2021-04-07 23:34 | Inpatient (IN) | payer MEDICAID ==
[~2021-04-07] VITALS: Ht 165.1 cm; Wt 64.5 kg
[2021-04-08 00:21] LABS: ALANINE AMINOTRANSFERASE 16 U/L (12-78); ALBUMIN 3.7 G/DL (3.4-5.0); ALBUMIN/GLOBULIN RATIO 0.9 (1.1-1.5); ALKALINE PHOSPHATASE 158 IU/L (46-116); ANION GAP 12 (8-16); ASPARTATE AMINO TRANSFERASE 19 U/L (10-37); BILIRUBIN,TOTAL 0.2 MG/DL (0.1-1.0); BLOOD UREA NITROGEN 14 MG/DL (7-18); BUN/CREATININE RATIO 15.7 (6.6-38.0); CALCIUM 8.8 MG/DL (8.5-10.1); CHLORIDE 99 MMOL/L (99-107); CREATININE 0.89 MG/DL (0.40-0.90); GLUCOSE 105 MG/DL (70-104); POTASSIUM 4.2 MMOL/L (3.5-5.1); SODIUM 137 MMOL/L (135-145); TOTAL CARBON DIOXIDE 25.8 MMOL/L (24-32); eGFR 64 ML/MIN
[2021-04-08 01:06] LABS: BASOPHILS % (AUTO) 0.7 % (0-1); EOSINOPHILS # (AUTO) 0.2 X10'3 (0-0.9); EOSINOPHILS % (AUTO) 3.2 % (0-6); HEMATOCRIT 44.4 % (35.0-45.0); LYMPHOCYTES % (AUTO) 14.1 % (21-51); MEAN CORPUSCULAR HEMOGLOBIN 30.4 PG (27.0-31.0); MEAN CORPUSCULAR HGB CONC 33.9 g/dL (33.0-36.5); MEAN CORPUSCULAR VOLUME 89.8 FL (78-98); MEAN PLATELET VOLUME 7.2 FL (7.4-10.4); MONOCYTES # (AUTO) 0.8 X10'3 (0-0.9); MONOCYTES % (AUTO) 10.4 % (2-12); NEUTROPHILS # (AUTO) 5.3 X10'3 (1.8-7.7); NEUTROPHILS % (AUTO) 71.6 % (42-75); PLATELET COUNT 247 X10'3 (140-440); RED BLOOD COUNT 4.94 X10'6 (4.20-5.60); RED CELL DISTRIBUTION WIDTH 16.5 % (11.5-14.5); WHITE BLOOD COUNT 7.4 X10'3 (4.5-11.0)
[2021-04-08] MEDS ORDERED: normal saline 1000ml 1,000 ML IV ONE (07:40)
[2021-04-08] MEDS ORDERED: methylPREDNISolone sod succ 125mg/2ml vial IV ONE (07:40)
[2021-04-08] MEDS ORDERED: ipratropium/albuterol 3ml nebule NEB ONE (07:40)
[2021-04-08] MEDS ORDERED: iohexol 350MG/ML 100ml bottle IV ONE (07:50)
[2021-04-08] MEDS ORDERED: ondansetron/PF 4mg/2ml inj IV PRN (10:35)
[2021-04-08] MEDS ORDERED: magnesium 2GM in 50ml NS 50 ML IV PRN (10:35)
[2021-04-08] MEDS ORDERED: magnesium 4gm in 100ml NS 100 ML IV PRN (10:35)
[2021-04-08] MEDS ORDERED: magnesium Cl slow-release 64mg tablet PO PRN (10:35)
[2021-04-08] MEDS ORDERED: potassium Cl 20 mEq SR tablet PO PRN ×2 (10:35)
[2021-04-08] MEDS ORDERED: acetaminophen 325mg tablet PO PRN (10:35)
[2021-04-08] MEDS ORDERED: mag hydrox/Alum hydrox/simeth 30ml oral suspension PO PRN (10:35)
[2021-04-08] MEDS ORDERED: HYDROcodone/acetaminophen 5mg/325mg tablet PO PRN (10:35)
[2021-04-08] MEDS ORDERED: magnesium hydroxide 30ml (MOM) UD suspension PO PRN (10:35)
[2021-04-08] MEDS ORDERED: potassium Cl 40MEQ/1/2NS 520ml 520 ML IV PRN ×2 (10:35)
[2021-04-08] MEDS ORDERED: morphine 2 MG/ML inj. syringe IV PRN (10:35)
[2021-04-08] MEDS ORDERED: ASPI-100 PO (10:55)
[2021-04-08] MEDS ORDERED: MELO-100 PO (10:55)
[2021-04-08] MEDS ORDERED: ASPI-974 PO (10:55)
[2021-04-08] MEDS: albuterol 2.5 MG/3 ML nebule NEB SCH ×4 (12:00→22:55)
[2021-04-08] MEDS: acetaminophen 325mg tablet PO PRN (15:13)
[2021-04-08] MEDS: heparin, porcine 5000 units/ml vial SQ SCH (19:45)
[2021-04-08] MEDS: K and/or MAG REPLACEMENT MC SCH (19:46)
[2021-04-08] MEDS: methylPREDNISolone sod succ 125mg/2ml vial IV SCH (19:46)
[2021-04-08] MEDS ORDERED: temazepam 15mg capsule PO PRN (21:00)
--- NOTE | 2021-04-09 01:39 | NUR ---
PT ON HOSPITAL BED AND IS AWAITING IPA. CURRENT VSS. SATS ON 1 LITER O2 94%. PTWITH 5 OUT OF 10 CHRONIC LOW BACK PAIN. DENIES ANY NEED FOR PAIN MEDS AT THIS TIME.
[2021-04-09] MEDS: albuterol 2.5 MG/3 ML nebule NEB SCH ×4 (02:40→16:20)
[2021-04-09] MEDS: K and/or MAG REPLACEMENT MC SCH ×2 (08:00→20:00)
[2021-04-09] MEDS: heparin, porcine 5000 units/ml vial SQ SCH ×2 (08:58→19:34)
[2021-04-09] MEDS: methylPREDNISolone sod succ 125mg/2ml vial IV SCH ×2 (08:58→19:33)
[2021-04-09] MEDS: CefTRIAXone 2gm/D5W 50ml BAG 50 ML IV SCH (08:58)
[2021-04-09 09:00] LABS: BASOPHILS % (AUTO) 0.4 % (0-1); EOSINOPHILS % (AUTO) 0.1 % (0-6); HEMATOCRIT 44.5 % (35.0-45.0); HEMOGLOBIN 14.8 g/dl (12.0-16.0); LYMPHOCYTES # (AUTO) 0.8 X10'3 (1.1-4.8); LYMPHOCYTES % (AUTO) 12.7 % (21-51); MEAN CORPUSCULAR HEMOGLOBIN 30.6 PG (27.0-31.0); MEAN CORPUSCULAR HGB CONC 33.3 g/dL (33.0-36.5); MEAN CORPUSCULAR VOLUME 91.9 FL (78-98); MEAN PLATELET VOLUME 7.2 FL (7.4-10.4); MONOCYTES # (AUTO) 0.8 X10'3 (0-0.9); MONOCYTES % (AUTO) 12.6 % (2-12); NEUTROPHILS # (AUTO) 4.5 X10'3 (1.8-7.7); NEUTROPHILS % (AUTO) 74.2 % (42-75); PLATELET COUNT 270 X10'3 (140-440); RED BLOOD COUNT 4.85 X10'6 (4.20-5.60); RED CELL DISTRIBUTION WIDTH 16.4 % (11.5-14.5); WHITE BLOOD COUNT 6.1 X10'3 (4.5-11.0)
[2021-04-09 09:18] LABS: ALBUMIN 3.6 G/DL (3.4-5.0); ANION GAP 11 (8-16); BLOOD UREA NITROGEN 22 MG/DL (7-18); BUN/CREATININE RATIO 27.8 (6.6-38.0); CALCIUM 9.1 MG/DL (8.5-10.1); CHLORIDE 98 MMOL/L (99-107); CREATININE 0.79 MG/DL (0.40-0.90); GLUCOSE 106 MG/DL (70-104); MAGNESIUM 2.3 MG/DL (1.5-2.4); POTASSIUM 4.2 MMOL/L (3.5-5.1); SODIUM 136 MMOL/L (135-145); TOTAL CARBON DIOXIDE 26.7 MMOL/L (24-32); eGFR 74 ML/MIN
[2021-04-09] MEDS: acetaminophen 325mg tablet PO PRN (09:24)
--- NOTE | 2021-04-09 10:21 | NUR ---
assumed care of pt from Daisy BOYD
--- NOTE | 2021-04-09 10:30 | NUR ---
Received Pt report from Dalila BOYD in ED. Had opportunity to ask questions concerning Pt care and plan. Awaiting arrival of Pt to room 3017E.
--- NOTE | 2021-04-09 10:33 | NUR ---
report to Josue BOYD
[2021-04-09 11:00] VITALS: BP 117/80
--- NOTE | 2021-04-09 11:00 | NUR ---
Pt arrived to room 3014B. pt alert and oriented and vitals WNL. Will continue to monitor Pt as needed
--- NOTE | 2021-04-09 13:13 | NUR ---
PAGER ID: [phone] MESSAGE: Re: Gerda Moore. Room: 3024B. Pt's home med rec complete and ready for you to review. -Josue [facility] #[id number] -Dr. Aguilera paged concerning Pt's Med rec.
[2021-04-09] MEDS ORDERED: tizanidine 4mg tablet PO PRN (13:40)
[2021-04-09 15:00] VITALS: BP 111/70
[2021-04-09 18:00] VITALS: BP 105/73
--- NOTE | 2021-04-09 18:00 | NUR ---
Problems reprioritized. Patient report given, questions answered & plan of care reviewed with Zully BOYD.
[2021-04-09] MEDS: ipratropium/albuterol 3ml nebule NEB SCH (20:02)
[2021-04-09 22:00] VITALS: BP 154/96
[2021-04-10 02:00] VITALS: BP 122/86
[2021-04-10] MEDS: ipratropium/albuterol 3ml nebule NEB SCH ×2 (02:22→09:49)
[2021-04-10 06:00] VITALS: BP 119/65
--- NOTE | 2021-04-10 06:13 | NUR ---
Patient in room PCU 3014. I have received report from Nilda BOYD at bedside and had the opportunity to ask questions and assume patient care.
--- NOTE | 2021-04-10 06:14 | NUR ---
Problems reprioritized. Patient report given, questions answered & plan of care reviewed with DEB Harkins.
[2021-04-10 07:34] LABS: BASOPHILS % (AUTO) 0.1 % (0-1); EOSINOPHILS % (AUTO) 0 % (0-6); HEMATOCRIT 41.2 % (35.0-45.0); LYMPHOCYTES # (AUTO) 0.9 X10'3 (1.1-4.8); LYMPHOCYTES % (AUTO) 10.6 % (21-51); MEAN CORPUSCULAR HEMOGLOBIN 30.9 PG (27.0-31.0); MEAN CORPUSCULAR VOLUME 90.8 FL (78-98); MEAN PLATELET VOLUME 7.7 FL (7.4-10.4); MONOCYTES # (AUTO) 0.7 X10'3 (0-0.9); NEUTROPHILS % (AUTO) 81.3 % (42-75); PLATELET COUNT 256 X10'3 (140-440); RED BLOOD COUNT 4.54 X10'6 (4.20-5.60); WHITE BLOOD COUNT 8.6 X10'3 (4.5-11.0)
[2021-04-10 07:52] LABS: ALBUMIN 3.1 G/DL (3.4-5.0); ANION GAP 11 (8-16); BLOOD UREA NITROGEN 27 MG/DL (7-18); BUN/CREATININE RATIO 39.1 (6.6-38.0); CALCIUM 8.7 MG/DL (8.5-10.1); CHLORIDE 99 MMOL/L (99-107); CREATININE 0.69 MG/DL (0.40-0.90); GLUCOSE 132 MG/DL (70-104); MAGNESIUM 2.3 MG/DL (1.5-2.4); POTASSIUM 4.1 MMOL/L (3.5-5.1); SODIUM 136 MMOL/L (135-145); TOTAL CARBON DIOXIDE 25.7 MMOL/L (24-32); eGFR 86 ML/MIN
[2021-04-10] MEDS ORDERED: non-formulary drug (Magnesium Oxide (Magnesium) 1 CAP) PO SCH (08:00)
[2021-04-10] MEDS ORDERED: atorvastatin 10mg tablet PO SCH (08:00)
[2021-04-10] MEDS ORDERED: ipratropium 0.5 MG/2.5ML nebule NEB SCH (08:00)
[2021-04-10] MEDS ORDERED: aspirin 325mg tablet PO SCH (08:00)
[2021-04-10] MEDS ORDERED: levoTHYROXINE 88mcg tablet PO SCH (08:00)
[2021-04-10] MEDS ORDERED: lisinopril 20mg tablet PO SCH (08:00)
[2021-04-10] MEDS: K and/or MAG REPLACEMENT MC SCH (08:00)
[2021-04-10] MEDS ORDERED: nortriptyline 25mg capsule PO SCH (08:00)
[2021-04-10] MEDS ORDERED: diltiazem CD 120mg capsule (once-daily) PO SCH (08:00)
[2021-04-10] MEDS: CefTRIAXone 2gm/D5W 50ml BAG 50 ML IV SCH (08:08)
[2021-04-10 08:09] VITALS: BP_SYST 119
[2021-04-10] MEDS: heparin, porcine 5000 units/ml vial SQ SCH (08:10)
[2021-04-10] MEDS: methylPREDNISolone sod succ 125mg/2ml vial IV SCH (08:12)
--- NOTE | 2021-04-10 09:52 | NUR ---
page Dr. Aguilera PAGER ID: [phone] MESSAGE: [facility] [id number] Gerda Moore, There is a medication conflict in discharge paper work of patient. please resolve the medication conflict in discharge. Thank you Shahana BOYD [phone]
[2021-04-10] MEDS ORDERED: LEVO500T89 PO (09:56)
--- NOTE | 2021-04-10 10:53 | NUR ---
Patient stable and comfortable ant discharge. Removed telemetry and PIV with cannula intact. No redness or irritation at PIV site. Gathered all patient valuables and gave to patient. Gave and discussed all discharge information and discharge education paperwork to patient. Patient was able to ask questions and receive answers. Patient was able to verbalize back all discharge information and discharge education. Patient was wheeled out to lobby in wheelchair by staff. Patient left hospital in private vehicle.
== END 2021-04-10 10:47 | disposition home or self-care (01) | DRG 139 ==
LOC: ER 23:35 → ED HOLD 04-08 10:34 → PCU 3S 04-09 11:04
PROVIDERS: ADMIT Internal Medicine; ATTEND Internal Medicine
PROC: B32T1ZZ Computerized Tomography (CT Scan) of Left Pulmonary Artery using Low Osmolar Contrast (ICD-10-PCS; principal; 2021-04-08)
PROC: B3201ZZ Computerized Tomography (CT Scan) of Thoracic Aorta using Low Osmolar Contrast (ICD-10-PCS; 2021-04-08)
PROC: B32S1ZZ Computerized Tomography (CT Scan) of Right Pulmonary Artery using Low Osmolar Contrast (ICD-10-PCS; 2021-04-08)
DX: J18.9 Pneumonia, unspecified organism (principal); J43.9 Emphysema, unspecified; E03.9 Hypothyroidism, unspecified; F17.210 Nicotine dependence, cigarettes, uncomplicated; I10 Essential (primary) hypertension; R91.1 Solitary pulmonary nodule; I25.10 Atherosclerotic heart disease of native coronary artery without angina pectoris; R09.02 Hypoxemia; Z82.49 Family history of ischemic heart disease and other diseases of the circulatory system; Z90.49 Acquired absence of other specified parts of digestive tract; Z90.710 Acquired absence of both cervix and uterus; I25.2 Old myocardial infarction; Z71.6 Tobacco abuse counseling
CPT/HCPCS: 36415; 71045; 71275; 80048; 80053; 83735; 83880; 84484; 85025; 87081; 93005; 93306; 94640; 94760; 99285; G0378; J0696; J1644; J2270; J2930; J7030; Q9967

== ENCOUNTER 2021-04-15 20:10 | Inpatient (IN) | payer MEDICAID ==
[~2021-04-15] VITALS: Ht 165.1 cm; Wt 65.9 kg
[~2021-04-15 20:10] MED LIST changes: +ASPI-100 PO; +ASPI-974 PO; -ESTR0.5T PO; +LEVO500T89 PO
[2021-04-15] MEDS ORDERED: normal saline 1000ml 1,000 ML IV ONE ×2 (20:35→22:10)
[2021-04-15 20:52] LABS: BASOPHILS % (AUTO) 0.1 % (0-1); EOSINOPHILS % (AUTO) 0 % (0-6); HEMATOCRIT 43.2 % (35.0-45.0); HEMOGLOBIN 14.5 g/dl (12.0-16.0); LYMPHOCYTES # (AUTO) 0.7 X10'3 (1.1-4.8); LYMPHOCYTES % (AUTO) 3.5 % (21-51); MEAN CORPUSCULAR HEMOGLOBIN 30.4 PG (27.0-31.0); MEAN CORPUSCULAR HGB CONC 33.5 g/dL (33.0-36.5); MEAN CORPUSCULAR VOLUME 90.7 FL (78-98); MEAN PLATELET VOLUME 7.1 FL (7.4-10.4); MONOCYTES # (AUTO) 1.1 X10'3 (0-0.9); MONOCYTES % (AUTO) 5.7 % (2-12); NEUTROPHILS # (AUTO) 17.8 X10'3 (1.8-7.7); NEUTROPHILS % (AUTO) 90.7 % (42-75); PLATELET COUNT 269 X10'3 (140-440); RED BLOOD COUNT 4.77 X10'6 (4.20-5.60); RED CELL DISTRIBUTION WIDTH 15.6 % (11.5-14.5); WHITE BLOOD COUNT 19.7 X10'3 (4.5-11.0)
[2021-04-15 21:06] LABS: PARTIAL THROMBOPLASTIN TIME 30 SECONDS (22-32)
[2021-04-15 21:11] LABS: ALANINE AMINOTRANSFERASE 22 U/L (12-78); ALBUMIN 2.9 G/DL (3.4-5.0); ALBUMIN/GLOBULIN RATIO 0.7 (1.1-1.5); ALKALINE PHOSPHATASE 246 IU/L (46-116); ANION GAP 10 (8-16); ASPARTATE AMINO TRANSFERASE 16 U/L (10-37); BILIRUBIN,TOTAL 0.2 MG/DL (0.1-1.0); BLOOD UREA NITROGEN 24 MG/DL (7-18); BUN/CREATININE RATIO 19.2 (6.6-38.0); CALCIUM 8.7 MG/DL (8.5-10.1); CHLORIDE 98 MMOL/L (99-107); CREATININE 1.25 MG/DL (0.40-0.90); GLUCOSE 175 MG/DL (70-104); POTASSIUM 4.5 MMOL/L (3.5-5.1); SODIUM 133 MMOL/L (135-145); TOTAL CARBON DIOXIDE 24.6 MMOL/L (24-32); TOTAL PROTEIN 7.1 G/DL (6.4-8.2); eGFR 44 ML/MIN
[2021-04-15] MEDS ORDERED: iohexol 300mg/ml 100ml inj. ONE (21:58)
[2021-04-15] MEDS ORDERED: piperacillin/tazo 3.375gm/50ml 50 ML IV ONE (22:10)
[2021-04-15 22:25] LABS: CLARITY,URINE CLEAR (Clear); COLOR,URINE YELLOW (Yellow); GLUCOSE, URINE NEGATIVE (Neg); KETONES,URINE NEGATIVE (Neg); LEUKOCYTE ESTERASE ,URINE NEGATIVE (Neg); NITRITES, URINE NEGATIVE (Neg); OCCULT BLOOD,URINE NEGATIVE (Neg); PROTEIN,URINE NEGATIVE (Neg); UA COLLECTION TYPE VOIDED; UROBILINOGEN,URINE 0.2 E.U/dL (0.2-1.0)
[2021-04-15] MEDS ORDERED: morphine 4 MG/ML inj SYRINge IV ONE (22:40)
[2021-04-15] MEDS ORDERED: ondansetron/PF 4mg/2ml inj IV ONE (22:40)
[2021-04-15] MEDS ORDERED: tizanidine 4mg tablet PO PRN (23:10)
[2021-04-15 23:56] LABS: OCCULT BLOOD STOOL POSITIVE (Neg)
[2021-04-16] MEDS ORDERED: magnesium hydroxide 30ml (MOM) UD suspension PO PRN (00:35)
[2021-04-16] MEDS ORDERED: ondansetron 4mg rapidly disintigrating tab PO PRN (00:35)
[2021-04-16] MEDS ORDERED: acetaminophen 325mg tablet PO PRN (00:35)
[2021-04-16] MEDS ORDERED: morphine 2 MG/ML inj. syringe IV PRN (00:35)
[2021-04-16] MEDS ORDERED: mag hydrox/Alum hydrox/simeth 30ml oral suspension PO PRN (00:35)
[2021-04-16] MEDS ORDERED: diphenhydrAMINE 25mg capsule PO PRN (00:35)
[2021-04-16] MEDS ORDERED: ondansetron/PF 4mg/2ml inj IV PRN (00:35)
[2021-04-16] MEDS ORDERED: HYDROcodone/acetaminophen 5mg/325mg tablet PO PRN (00:35)
[2021-04-16] MEDS ORDERED: HYDROmorphone inj. 0.5 MG/0.5 ML DISP.SYRIN IV PRN (00:35)
[2021-04-16] MEDS ORDERED: acetaminophen 650mg rectal suppository RC PRN (00:35)
[2021-04-16] MEDS ORDERED: diphenhydrAMINE 50 mg/ml inj IV PRN (00:35)
[2021-04-16] MEDS ORDERED: bisacodyl 10mg suppository rectal RC PRN (00:35)
[2021-04-16 01:22] LABS: MAGNESIUM 2.3 MG/DL (1.5-2.4); PHOSPHORUS 4.1 MG/DL (2.3-4.5)
[2021-04-16 01:27] LABS: URINE AMPHETAMINE SCREEN NEGATIVE (Neg); URINE BARBITUATE SCREEN NEGATIVE (Neg); URINE BENZODIAZEPINES SCREEN NEGATIVE (Neg); URINE CANNABINOID SCREEN NEGATIVE (Neg); URINE COCAINE SCREEN NEGATIVE (Neg); URINE METHADONE SCREEN NEGATIVE (Neg); URINE OPIATE SCREEN NEGATIVE (Neg); URINE PHENCYCLIDINE SCREEN NEGATIVE (Neg)
[2021-04-16] MEDS: normal saline 1000ml 1,000 ML IV SCH ×3 (01:41→20:35)
[2021-04-16] MEDS: ipratropium/albuterol 3ml nebule NEB SCH ×6 (03:05→23:06)
[2021-04-16] MEDS ORDERED: ipratropium/albuterol 3ml nebule NEB SCH (04:00)
--- NOTE | 2021-04-16 04:09 | NUR ---
pt is asleep
[2021-04-16 04:56] LABS: HEMOGLOBIN A1C 5.7 % (4.5-6.2)
--- NOTE | 2021-04-16 06:45 | NUR ---
patient changed into a gown.
[2021-04-16] MEDS: acetaminophen 325mg tablet PO PRN ×2 (07:41→20:30)
[2021-04-16] MEDS ORDERED: piperacillin/tazo 3.375gm/50ml 50 ML IV SCH (08:00)
[2021-04-16] MEDS ORDERED: pravastatin 40mg tablet PO SCH (08:00)
[2021-04-16] MEDS ORDERED: methylPREDNISolone sod succ 125mg/2ml vial IV SCH (08:00)
[2021-04-16] MEDS ORDERED: nortriptyline 25mg capsule PO SCH (08:00)
[2021-04-16] MEDS ORDERED: azithromycin/NS 500mg/250ml 250 ML IV SCH (08:00)
[2021-04-16] MEDS ORDERED: CefTRIAXone/D5W-Rocephin 1gm 50 ML IV SCH (08:00)
[2021-04-16] MEDS: docusate sod 100mg capsule PO SCH ×2 (08:38→20:28)
[2021-04-16] MEDS: pantoprazole 40 MG vial IV SCH ×2 (08:38→20:34)
[2021-04-16] MEDS: diltiazem CD 120mg capsule (once-daily) PO SCH (08:38)
[2021-04-16] MEDS: heparin, porcine 5000 units/ml vial SQ SCH ×2 (08:39→20:37)
[2021-04-16] MEDS: lisinopril 20mg tablet PO SCH (08:47)
[2021-04-16] MEDS: levoTHYROXINE 88mcg tablet PO SCH (08:51)
[2021-04-16] MEDS: nicotine 21mg patch - 24 hr TD SCH (08:51)
--- NOTE | 2021-04-16 09:30 | NUR ---
kenan and pambess not in the omni,called pharmacy spoke with danya.
[2021-04-16 09:53] LABS: BASOPHILS % (AUTO) 0.1 % (0-1); EOSINOPHILS % (AUTO) 0.2 % (0-6); HEMATOCRIT 40.1 % (35.0-45.0); HEMOGLOBIN 13.3 g/dl (12.0-16.0); LYMPHOCYTES # (AUTO) 1.2 X10'3 (1.1-4.8); LYMPHOCYTES % (AUTO) 7.1 % (21-51); MEAN CORPUSCULAR HEMOGLOBIN 30.5 PG (27.0-31.0); MEAN CORPUSCULAR HGB CONC 33.2 g/dL (33.0-36.5); MEAN CORPUSCULAR VOLUME 92.1 FL (78-98); MEAN PLATELET VOLUME 7.2 FL (7.4-10.4); MONOCYTES % (AUTO) 5.9 % (2-12); NEUTROPHILS # (AUTO) 14.8 X10'3 (1.8-7.7); NEUTROPHILS % (AUTO) 86.7 % (42-75); PLATELET COUNT 246 X10'3 (140-440); RED BLOOD COUNT 4.36 X10'6 (4.20-5.60); RED CELL DISTRIBUTION WIDTH 15.6 % (11.5-14.5)
[2021-04-16 09:54] LABS: ALBUMIN 2.4 G/DL (3.4-5.0); ANION GAP 11 (8-16); BLOOD UREA NITROGEN 15 MG/DL (7-18); BUN/CREATININE RATIO 17.9 (6.6-38.0); CALCIUM 8.3 MG/DL (8.5-10.1); CHLORIDE 102 MMOL/L (99-107); CREATININE 0.84 MG/DL (0.40-0.90); GLUCOSE 122 MG/DL (70-104); POTASSIUM 4.3 MMOL/L (3.5-5.1); SODIUM 137 MMOL/L (135-145); TOTAL CARBON DIOXIDE 24.5 MMOL/L (24-32); eGFR 69 ML/MIN
--- NOTE | 2021-04-16 10:05 | NUR ---
Dr. Aguilera at bedside.
[2021-04-16] MEDS ORDERED: ALBU8.5H8 INH (11:16)
--- NOTE | 2021-04-16 11:37 | NUR ---
relieving RN for break, pt is resting quietly on gurney, waiting for room assignment
--- NOTE | 2021-04-16 12:20 | NUR ---
patient asleep at this time.
--- NOTE | 2021-04-16 12:31 | NUR ---
Spoke to Dr shaw to request a new diet since pt still MD ANJANA said she will talk to the GI Dr. mcwilliams.
[2021-04-16] MEDS: ciprofloxacin lact 400MG/200ML 200 ML IV SCH ×2 (13:25→20:39)
[2021-04-16] MEDS: metroNIDAZOLE-Flagyl 500mg/NS 100 ML IV SCH ×2 (14:42→16:00)
--- NOTE | 2021-04-16 15:29 | NUR ---
GIVEN ICED WATER AND TEA PER REQUEST.
--- NOTE | 2021-04-16 17:59 | NUR ---
PATIENT ON A HOSPITAL BED.
--- NOTE | 2021-04-16 18:01 | NUR ---
FLAGYL NON ADMIN DUE TO NOT SCHEDULED YET,ORDER READS EVERY 8 HOURS,RN WAS INSTRUCTED BY EVY/JULITA TO NON ADMIN IT.
[2021-04-16 19:15] VITALS: BP 123/74
--- NOTE | 2021-04-16 19:15 | NUR ---
PATIENT ADMITTED TO ROOM 340B FROM ER FOR COLITIS, GI BLEED. PLACED COMFORTABLE IN BED. VITAL SIGNS TAKEN AND RECORDED.
[2021-04-16] MEDS ORDERED: lactobacillus rhamnosus 10,000 MMU CELLS/CAPSULE PO SCH (20:00)
[2021-04-16] MEDS: methylPREDNISolone sod succ/PF 40mg inj. IV SCH (20:26)
[2021-04-16] MEDS: lactobacillus rhamnosus 10,000 MMU CELLS/CAPSULE PO SCH (20:29)
[2021-04-16] MEDS: pravastatin 40mg tablet PO SCH (20:31)
[2021-04-16] MEDS: nortriptyline 25mg capsule PO SCH (20:32)
[2021-04-16] MEDS ORDERED: temazepam 15mg capsule PO PRN (21:00)
[2021-04-17] VITALS: BP 124/76
[2021-04-17] MEDS: metroNIDAZOLE-Flagyl 500mg/NS 100 ML IV SCH ×4 (00:34→23:45)
[2021-04-17] MEDS: acetaminophen 325mg tablet PO PRN ×2 (02:56→19:04)
[2021-04-17] MEDS: ipratropium/albuterol 3ml nebule NEB SCH ×6 (03:01→23:36)
[2021-04-17] MEDS: normal saline 1000ml 1,000 ML IV SCH ×2 (03:02→17:40)
--- NOTE | 2021-04-17 06:23 | NUR ---
Problems reprioritized. Patient report given, questions answered & plan of care reviewed with RADHA BOYD.
[2021-04-17 06:36] LABS: BASOPHILS % (AUTO) 0.3 % (0-1); EOSINOPHILS % (AUTO) 0 % (0-6); HEMATOCRIT 37.8 % (35.0-45.0); HEMOGLOBIN 12.9 g/dl (12.0-16.0); LYMPHOCYTES # (AUTO) 0.4 X10'3 (1.1-4.8); LYMPHOCYTES % (AUTO) 2.3 % (21-51); MEAN CORPUSCULAR HEMOGLOBIN 30.7 PG (27.0-31.0); MEAN CORPUSCULAR HGB CONC 34.1 g/dL (33.0-36.5); MEAN PLATELET VOLUME 7.1 FL (7.4-10.4); MONOCYTES # (AUTO) 0.5 X10'3 (0-0.9); MONOCYTES % (AUTO) 2.8 % (2-12); NEUTROPHILS # (AUTO) 15.6 X10'3 (1.8-7.7); NEUTROPHILS % (AUTO) 94.6 % (42-75); PLATELET COUNT 251 X10'3 (140-440); RED CELL DISTRIBUTION WIDTH 15.5 % (11.5-14.5); WHITE BLOOD COUNT 16.5 X10'3 (4.5-11.0)
[2021-04-17 06:42] LABS: ALANINE AMINOTRANSFERASE 19 U/L (12-78); ALBUMIN 2.6 G/DL (3.4-5.0); ALBUMIN/GLOBULIN RATIO 0.6 (1.1-1.5); ALKALINE PHOSPHATASE 175 IU/L (46-116); ANION GAP 10 (8-16); ASPARTATE AMINO TRANSFERASE 14 U/L (10-37); BILIRUBIN,TOTAL 0.3 MG/DL (0.1-1.0); BLOOD UREA NITROGEN 7 MG/DL (7-18); BUN/CREATININE RATIO 8.5 (6.6-38.0); CALCIUM 8.6 MG/DL (8.5-10.1); CHLORIDE 102 MMOL/L (99-107); CREATININE 0.82 MG/DL (0.40-0.90); GLUCOSE 177 MG/DL (70-104); POTASSIUM 3.5 MMOL/L (3.5-5.1); SODIUM 137 MMOL/L (135-145); TOTAL CARBON DIOXIDE 24.8 MMOL/L (24-32); TOTAL PROTEIN 6.8 G/DL (6.4-8.2); eGFR 71 ML/MIN
[2021-04-17 08:00] VITALS: BP 132/77
[2021-04-17] MEDS: nicotine 21mg patch - 24 hr TD SCH (08:09)
[2021-04-17] MEDS: docusate sod 100mg capsule PO SCH ×2 (08:10→19:53)
[2021-04-17] MEDS: lactobacillus rhamnosus 10,000 MMU CELLS/CAPSULE PO SCH ×2 (08:10→19:54)
[2021-04-17] MEDS: levoTHYROXINE 88mcg tablet PO SCH (08:10)
[2021-04-17] MEDS: lisinopril 20mg tablet PO SCH (08:10)
[2021-04-17] MEDS: diltiazem CD 120mg capsule (once-daily) PO SCH (08:10)
[2021-04-17] MEDS: heparin, porcine 5000 units/ml vial SQ SCH ×2 (08:11→19:58)
[2021-04-17] MEDS: pantoprazole 40 MG vial IV SCH ×2 (08:11→19:52)
[2021-04-17] MEDS: methylPREDNISolone sod succ/PF 40mg inj. IV SCH (08:11)
[2021-04-17 11:00] VITALS: BP 123/70
[2021-04-17 11:03] LABS: OCCULT BLOOD STOOL POSITIVE (Neg)
[2021-04-17] MEDS: ciprofloxacin lact 400MG/200ML 200 ML IV SCH ×2 (11:08→19:52)
[2021-04-17] MEDS: nystatin 500,000 unit/5ML UD oral suspension PO SCH ×2 (12:56→21:33)
[2021-04-17 18:30] VITALS: BP 152/88
[2021-04-17] MEDS: nortriptyline 25mg capsule PO SCH (21:33)
[2021-04-17] MEDS: pravastatin 40mg tablet PO SCH (21:33)
[2021-04-18] MEDS: acetaminophen 325mg tablet PO PRN ×4 (01:08→23:29)
[2021-04-18] MEDS: normal saline 1000ml 1,000 ML IV SCH ×3 (02:35→20:30)
[2021-04-18] MEDS: ipratropium/albuterol 3ml nebule NEB SCH ×6 (02:51→23:07)
[2021-04-18 06:52] LABS: ALANINE AMINOTRANSFERASE 19 U/L (12-78); ALBUMIN 2.6 G/DL (3.4-5.0); ALBUMIN/GLOBULIN RATIO 0.7 (1.1-1.5); ALKALINE PHOSPHATASE 155 IU/L (46-116); ANION GAP 10 (8-16); ASPARTATE AMINO TRANSFERASE 16 U/L (10-37); BILIRUBIN,TOTAL 0.2 MG/DL (0.1-1.0); BLOOD UREA NITROGEN 7 MG/DL (7-18); BUN/CREATININE RATIO 8.8 (6.6-38.0); CALCIUM 8.5 MG/DL (8.5-10.1); CHLORIDE 103 MMOL/L (99-107); GLUCOSE 117 MG/DL (70-104); SODIUM 138 MMOL/L (135-145); TOTAL PROTEIN 6.5 G/DL (6.4-8.2); eGFR 73 ML/MIN
[2021-04-18 06:55] LABS: BASOPHILS % (AUTO) 0.1 % (0-1); EOSINOPHILS % (AUTO) 0 % (0-6); HEMATOCRIT 37.4 % (35.0-45.0); HEMOGLOBIN 12.5 g/dl (12.0-16.0); LYMPHOCYTES # (AUTO) 0.8 X10'3 (1.1-4.8); LYMPHOCYTES % (AUTO) 3.9 % (21-51); MEAN CORPUSCULAR HEMOGLOBIN 30.3 PG (27.0-31.0); MEAN CORPUSCULAR HGB CONC 33.4 g/dL (33.0-36.5); MEAN CORPUSCULAR VOLUME 90.6 FL (78-98); MEAN PLATELET VOLUME 7.4 FL (7.4-10.4); MONOCYTES # (AUTO) 1.2 X10'3 (0-0.9); NEUTROPHILS # (AUTO) 17.7 X10'3 (1.8-7.7); PLATELET COUNT 307 X10'3 (140-440); RED BLOOD COUNT 4.12 X10'6 (4.20-5.60); RED CELL DISTRIBUTION WIDTH 15.5 % (11.5-14.5); WHITE BLOOD COUNT 19.7 X10'3 (4.5-11.0)
[2021-04-18 07:00] VITALS: BP 131/71
--- NOTE | 2021-04-18 07:56 | NUR ---
Critical just found on a sticky note on a computer. Primary RN not sure who placed it there. Will notify MD promptly.
[2021-04-18] MEDS: docusate sod 100mg capsule PO SCH ×2 (08:00→20:00)
[2021-04-18] MEDS: nystatin 500,000 unit/5ML UD oral suspension PO SCH ×3 (08:00→21:00)
[2021-04-18] MEDS: heparin, porcine 5000 units/ml vial SQ SCH (08:00)
--- NOTE | 2021-04-18 08:02 | NUR ---
PAGER ID: [phone] MESSAGE: Gerda Moore 340L Critical value k=3.0 No potassium replacement orders. Thanks and good morning! Dayanara [phone]
[2021-04-18] MEDS ORDERED: potassium Cl 40MEQ/1/2NS 520ml 520 ML IV PRN (08:10)
[2021-04-18] MEDS ORDERED: magnesium 4gm in 100ml NS 100 ML IV PRN (08:10)
[2021-04-18] MEDS ORDERED: magnesium Cl slow-release 64mg tablet PO PRN (08:10)
[2021-04-18] MEDS ORDERED: potassium Cl 20 mEq SR tablet PO PRN (08:10)
[2021-04-18] MEDS: metroNIDAZOLE-Flagyl 500mg/NS 100 ML IV SCH ×3 (08:23→23:35)
[2021-04-18] MEDS: lactobacillus rhamnosus 10,000 MMU CELLS/CAPSULE PO SCH ×2 (08:25→21:10)
[2021-04-18] MEDS: pantoprazole 40 MG vial IV SCH ×2 (08:25→21:21)
[2021-04-18] MEDS: potassium Cl 20 mEq SR tablet PO PRN ×3 (08:25→15:55)
[2021-04-18] MEDS: nicotine 21mg patch - 24 hr TD SCH (08:26)
[2021-04-18] MEDS: levoTHYROXINE 88mcg tablet PO SCH (08:27)
[2021-04-18] MEDS: diltiazem CD 120mg capsule (once-daily) PO SCH (08:34)
[2021-04-18] MEDS: lisinopril 20mg tablet PO SCH (08:34)
[2021-04-18 08:54] LABS: MAGNESIUM 1.7 MG/DL (1.5-2.4)
[2021-04-18 11:09] VITALS: BP 120/60
[2021-04-18] MEDS: ciprofloxacin lact 400MG/200ML 200 ML IV SCH ×2 (11:14→21:10)
[2021-04-18 11:41] VITALS: BP 119/64
--- NOTE | 2021-04-18 18:24 | NUR ---
Problems reprioritized. Patient report given, questions answered & plan of care reviewed with Christopher BOYD.
[2021-04-18 18:30] VITALS: BP 115/69
[2021-04-18] MEDS: K and/or MAG REPLACEMENT MC SCH (20:00)
[2021-04-18] MEDS: pravastatin 40mg tablet PO SCH (21:10)
[2021-04-18] MEDS: nortriptyline 25mg capsule PO SCH (21:10)
[2021-04-19] VITALS: BP 150/88
[2021-04-19] MEDS: ipratropium/albuterol 3ml nebule NEB SCH ×6 (03:03→23:59)
[2021-04-19] MEDS: normal saline 1000ml 1,000 ML IV SCH ×2 (05:30→16:50)
[2021-04-19 06:25] LABS: BASOPHILS % (AUTO) 0.2 % (0-1); EOSINOPHILS # (AUTO) 0.2 X10'3 (0-0.9); EOSINOPHILS % (AUTO) 1.5 % (0-6); HEMATOCRIT 40.6 % (35.0-45.0); HEMOGLOBIN 13.4 g/dl (12.0-16.0); LYMPHOCYTES # (AUTO) 1.1 X10'3 (1.1-4.8); LYMPHOCYTES % (AUTO) 7.6 % (21-51); MEAN CORPUSCULAR HGB CONC 32.9 g/dL (33.0-36.5); MEAN PLATELET VOLUME 7.4 FL (7.4-10.4); MONOCYTES % (AUTO) 6.9 % (2-12); NEUTROPHILS % (AUTO) 83.8 % (42-75); PLATELET COUNT 314 X10'3 (140-440); RED BLOOD COUNT 4.46 X10'6 (4.20-5.60); RED CELL DISTRIBUTION WIDTH 15.6 % (11.5-14.5); WHITE BLOOD COUNT 14.3 X10'3 (4.5-11.0)
--- NOTE | 2021-04-19 06:27 | NUR ---
Problems reprioritized. Patient report given, questions answered & plan of care reviewed with CORRINE. Addendum: 04/19/21 at 0628 by Cornell Rangel RN Amended: Links added.
[2021-04-19 06:29] LABS: ALANINE AMINOTRANSFERASE 17 U/L (12-78); ALBUMIN 2.5 G/DL (3.4-5.0); ALBUMIN/GLOBULIN RATIO 0.7 (1.1-1.5); ALKALINE PHOSPHATASE 138 IU/L (46-116); ANION GAP 7 (8-16); ASPARTATE AMINO TRANSFERASE 11 U/L (10-37); BILIRUBIN,TOTAL 0.3 MG/DL (0.1-1.0); BLOOD UREA NITROGEN 6 MG/DL (7-18); BUN/CREATININE RATIO 7.8 (6.6-38.0); CALCIUM 8.3 MG/DL (8.5-10.1); CHLORIDE 105 MMOL/L (99-107); CREATININE 0.77 MG/DL (0.40-0.90); GLUCOSE 81 MG/DL (70-104); MAGNESIUM 1.7 MG/DL (1.5-2.4); SODIUM 137 MMOL/L (135-145); TOTAL CARBON DIOXIDE 24.8 MMOL/L (24-32); TOTAL PROTEIN 6.1 G/DL (6.4-8.2); eGFR 76 ML/MIN
[2021-04-19 07:27] VITALS: BP 127/84
--- NOTE | 2021-04-19 07:33 | NUR ---
PAGER ID: [phone] MESSAGE: Gerda MCRAE 340B Positive BC aerobic bottles - gram + rods. Dayanara [id number]
[2021-04-19] MEDS: nystatin 500,000 unit/5ML UD oral suspension PO SCH ×3 (08:00→21:00)
[2021-04-19] MEDS: K and/or MAG REPLACEMENT MC SCH ×2 (08:00→20:00)
[2021-04-19] MEDS: diltiazem CD 120mg capsule (once-daily) PO SCH (08:36)
[2021-04-19] MEDS: docusate sod 100mg capsule PO SCH ×2 (08:37→20:00)
[2021-04-19] MEDS: levoTHYROXINE 88mcg tablet PO SCH (08:37)
[2021-04-19] MEDS: lactobacillus rhamnosus 10,000 MMU CELLS/CAPSULE PO SCH ×2 (08:37→19:56)
[2021-04-19] MEDS: nicotine 21mg patch - 24 hr TD SCH (08:38)
[2021-04-19] MEDS: lisinopril 20mg tablet PO SCH (08:38)
[2021-04-19] MEDS: pantoprazole 40 MG vial IV SCH ×2 (08:39→19:56)
[2021-04-19] MEDS: ciprofloxacin lact 400MG/200ML 200 ML IV SCH ×2 (08:41→19:56)
[2021-04-19] MEDS: metroNIDAZOLE-Flagyl 500mg/NS 100 ML IV SCH ×3 (11:10→23:29)
[2021-04-19 11:11] VITALS: BP 108/78
[2021-04-19] MEDS: acetaminophen 325mg tablet PO PRN (16:51)
[2021-04-19 18:00] VITALS: BP 83/56
--- NOTE | 2021-04-19 18:31 | NUR ---
Problems reprioritized. Patient report given, questions answered & plan of care reviewed with Shirley Brennan RN.
--- NOTE | 2021-04-19 18:32 | NUR ---
Patient in room GEGE 340. I have received report from DEB Nichole and had the opportunity to ask questions and assume patient care.
[2021-04-19 20:04] VITALS: BP 95/47
[2021-04-19] MEDS: pravastatin 40mg tablet PO SCH (21:08)
[2021-04-19] MEDS: nortriptyline 25mg capsule PO SCH (21:08)
[2021-04-19 23:57] VITALS: BP 121/68
[2021-04-20] MEDS: acetaminophen 325mg tablet PO PRN (00:58)
[2021-04-20] MEDS: ipratropium/albuterol 3ml nebule NEB SCH ×2 (02:56→10:13)
[2021-04-20] MEDS: normal saline 1000ml 1,000 ML IV SCH (03:21)
[2021-04-20 05:46] LABS: BASOPHILS % (AUTO) 0.4 % (0-1); EOSINOPHILS # (AUTO) 0.5 X10'3 (0-0.9); EOSINOPHILS % (AUTO) 4.1 % (0-6); HEMATOCRIT 38.8 % (35.0-45.0); LYMPHOCYTES % (AUTO) 7.8 % (21-51); MEAN CORPUSCULAR HEMOGLOBIN 30.1 PG (27.0-31.0); MEAN CORPUSCULAR HGB CONC 33.4 g/dL (33.0-36.5); MEAN CORPUSCULAR VOLUME 90.1 FL (78-98); MEAN PLATELET VOLUME 6.7 FL (7.4-10.4); MONOCYTES # (AUTO) 0.8 X10'3 (0-0.9); MONOCYTES % (AUTO) 6.6 % (2-12); NEUTROPHILS # (AUTO) 9.9 X10'3 (1.8-7.7); NEUTROPHILS % (AUTO) 81.1 % (42-75); PLATELET COUNT 311 X10'3 (140-440); RED BLOOD COUNT 4.31 X10'6 (4.20-5.60); RED CELL DISTRIBUTION WIDTH 15.6 % (11.5-14.5); WHITE BLOOD COUNT 12.2 X10'3 (4.5-11.0)
[2021-04-20 05:57] LABS: ALANINE AMINOTRANSFERASE 14 U/L (12-78); ALBUMIN/GLOBULIN RATIO 0.6 (1.1-1.5); ALKALINE PHOSPHATASE 94 IU/L (46-116); ANION GAP 9 (8-16); ASPARTATE AMINO TRANSFERASE 11 U/L (10-37); BILIRUBIN,TOTAL 0.2 MG/DL (0.1-1.0); BLOOD UREA NITROGEN 9 MG/DL (7-18); CALCIUM 7.7 MG/DL (8.5-10.1); CHLORIDE 103 MMOL/L (99-107); GLUCOSE 99 MG/DL (70-104); MAGNESIUM 1.5 MG/DL (1.5-2.4); POTASSIUM 3.5 MMOL/L (3.5-5.1); SODIUM 137 MMOL/L (135-145); TOTAL CARBON DIOXIDE 25.1 MMOL/L (24-32); TOTAL PROTEIN 5.3 G/DL (6.4-8.2); eGFR 64 ML/MIN
--- NOTE | 2021-04-20 06:16 | NUR ---
Problems reprioritized. Patient report given, questions answered & plan of care reviewed with DEB Troncoso.
[2021-04-20] MEDS: docusate sod 100mg capsule PO SCH (07:09)
[2021-04-20] MEDS: nystatin 500,000 unit/5ML UD oral suspension PO SCH (07:09)
[2021-04-20] MEDS: lactobacillus rhamnosus 10,000 MMU CELLS/CAPSULE PO SCH (07:12)
[2021-04-20] MEDS: levoTHYROXINE 88mcg tablet PO SCH (07:12)
[2021-04-20] MEDS: nicotine 21mg patch - 24 hr TD SCH (07:13)
[2021-04-20] MEDS: pantoprazole 40 MG vial IV SCH (07:15)
[2021-04-20] MEDS: metroNIDAZOLE-Flagyl 500mg/NS 100 ML IV SCH (07:15)
[2021-04-20] MEDS: K and/or MAG REPLACEMENT MC SCH (07:16)
[2021-04-20 08:00] VITALS: BP 118/79
[2021-04-20 08:26] VITALS: BP_SYST 118
[2021-04-20] MEDS: lisinopril 20mg tablet PO SCH (08:26)
[2021-04-20] MEDS: ciprofloxacin lact 400MG/200ML 200 ML IV SCH (08:26)
[2021-04-20] MEDS: diltiazem CD 120mg capsule (once-daily) PO SCH (08:26)
[2021-04-20] MEDS ORDERED: CIPR-202 PO (10:40)
[2021-04-20] MEDS ORDERED: NICO-687 TD (10:40)
[2021-04-20] MEDS ORDERED: METR-159 PO (10:40)
--- NOTE | 2021-04-20 11:55 | NUR ---
Pt discharged home with . Pt will f/u outpt with Dr Sumner and Dr Choe. IV taken out, all belongings taken from room. Pt will hop picker new perscriptions at preferred phamacy. Pt taken down to discharge vehicle via wheelchair.
== END 2021-04-20 11:40 | disposition home or self-care (01) | DRG 720 ==
LOC: ER 20:10 → ED HOLD 04-16 00:33 → SUR 3N 04-16 19:12
PROVIDERS: ADMIT Family Medicine; ATTEND Family Medicine
PROC: BW211ZZ Computerized Tomography (CT Scan) of Abdomen and Pelvis using Low Osmolar Contrast (ICD-10-PCS; principal; 2021-04-15)
DX: A41.9 Sepsis, unspecified organism (principal); I13.0 Hypertensive heart and chronic kidney disease with heart failure and stage 1 through stage 4 chronic kidney disease, or unspecified chronic kidney disease; E87.1 Hypo-osmolality and hyponatremia; J44.1 Chronic obstructive pulmonary disease with (acute) exacerbation; K80.10 Calculus of gallbladder with chronic cholecystitis without obstruction; I50.32 Chronic diastolic (congestive) heart failure; J84.10 Pulmonary fibrosis, unspecified; E86.0 Dehydration; E03.9 Hypothyroidism, unspecified; F17.210 Nicotine dependence, cigarettes, uncomplicated; I25.10 Atherosclerotic heart disease of native coronary artery without angina pectoris; I73.9 Peripheral vascular disease, unspecified; A09 Infectious gastroenteritis and colitis, unspecified; J02.9 Acute pharyngitis, unspecified; K92.1 Melena; E87.6 Hypokalemia; K59.09 Other constipation; N18.9 Chronic kidney disease, unspecified; Z79.890 Hormone replacement therapy; I25.2 Old myocardial infarction; Z79.899 Other long term (current) drug therapy; Z82.49 Family history of ischemic heart disease and other diseases of the circulatory system; Z87.01 Personal history of pneumonia (recurrent); Z90.49 Acquired absence of other specified parts of digestive tract; Z90.710 Acquired absence of both cervix and uterus; Z79.82 Long term (current) use of aspirin; Z71.6 Tobacco abuse counseling
CPT/HCPCS: 36415; 71045; 74177; 80048; 80053; 80305; 81003; 82272; 83036; 83605; 83735; 83880; 84100; 84132; 84145; 84443; 85025; 85610; 85730; 86885; 86900; 86901; 87040; 87081; 93005; 94640; 94760; 96365; 99285; C9113; G0378; J0456; J0744; J1644; J2270; J2405; J2543; J2920; J2930; J3490; J7030; Q9967

== ENCOUNTER 2021-04-29 16:05 | Emergency (ER) | payer MEDICAID ==
[~2021-04-29] VITALS: Ht 165.1 cm; Wt 61.0 kg
[~2021-04-29 16:05] MED LIST changes: -ALBU18HF2 IH; +ALBU8.5H17 INH; -ASPI-100 PO; -ASPI-974 PO; +CIPR-202 PO; -DOCU100C40 PO; -LEVO500T89 PO; +METR-159 PO; +NICO-687 TD
[2021-04-29 17:21] LABS: BASOPHILS # (AUTO) 0.1 X10'3 (0-0.2); EOSINOPHILS # (AUTO) 0.2 X10'3 (0-0.9); HEMATOCRIT 38.6 % (35.0-45.0); LYMPHOCYTES # (AUTO) 1.1 X10'3 (1.1-4.8); LYMPHOCYTES % (AUTO) 14.5 % (21-51); MEAN CORPUSCULAR HEMOGLOBIN 30.8 PG (27.0-31.0); MEAN CORPUSCULAR HGB CONC 33.6 g/dL (33.0-36.5); MEAN CORPUSCULAR VOLUME 91.6 FL (78-98); MEAN PLATELET VOLUME 5.8 FL (7.4-10.4); MONOCYTES # (AUTO) 0.8 X10'3 (0-0.9); MONOCYTES % (AUTO) 10.9 % (2-12); NEUTROPHILS # (AUTO) 5.3 X10'3 (1.8-7.7); NEUTROPHILS % (AUTO) 70.6 % (42-75); PLATELET COUNT 559 X10'3 (140-440); RED BLOOD COUNT 4.21 X10'6 (4.20-5.60); RED CELL DISTRIBUTION WIDTH 16.1 % (11.5-14.5); WHITE BLOOD COUNT 7.6 X10'3 (4.5-11.0)
[2021-04-29 17:29] LABS: URINE HCG NEGATIVE (NEG)
[2021-04-29 17:32] LABS: CLARITY,URINE SLIGHTLY CLOUDY (Clear); COLOR,URINE YELLOW (Yellow); GLUCOSE, URINE NEGATIVE (Neg); KETONES,URINE NEGATIVE (Neg); LEUKOCYTE ESTERASE ,URINE NEGATIVE (Neg); NITRITES, URINE NEGATIVE (Neg); OCCULT BLOOD,URINE NEGATIVE (Neg); PH,URINE 6.5 (4.8-8.0); PROTEIN,URINE NEGATIVE (Neg); UROBILINOGEN,URINE 0.2 E.U/dL (0.2-1.0)
[2021-04-29 17:36] LABS: ALANINE AMINOTRANSFERASE 11 U/L (12-78); ALBUMIN 2.6 G/DL (3.4-5.0); ALBUMIN/GLOBULIN RATIO 0.6 (1.1-1.5); ALKALINE PHOSPHATASE 106 IU/L (46-116); ANION GAP 10 (8-16); ASPARTATE AMINO TRANSFERASE 13 U/L (10-37); BILIRUBIN,TOTAL 0.2 MG/DL (0.1-1.0); BLOOD UREA NITROGEN 11 MG/DL (7-18); BUN/CREATININE RATIO 12.4 (6.6-38.0); CALCIUM 8.6 MG/DL (8.5-10.1); CHLORIDE 100 MMOL/L (99-107); CREATININE 0.89 MG/DL (0.40-0.90); GLUCOSE 143 MG/DL (70-104); LIPASE 113 U/L (73-393); POTASSIUM 3.7 MMOL/L (3.5-5.1); SODIUM 136 MMOL/L (135-145); TOTAL CARBON DIOXIDE 26.3 MMOL/L (24-32); TOTAL PROTEIN 7.1 G/DL (6.4-8.2); eGFR 64 ML/MIN
[2021-04-29 17:43] LABS: UA COLLECTION TYPE NON-SPECIFIED
[2021-04-29 17:48] LABS: SQUAMOUS EPITHELIAL CELL,UR FEW /LPF (FEW)
[2021-04-29 17:49] LABS: BACTERIA,URINE FEW /HPF (Neg); RBC,URINE 0-2 /HPF (0-2); WBC,URINE NONE SEEN /HPF (0-4)
[2021-04-29 23:05] VITALS: BP 106/70
[2021-04-29] MEDS ORDERED: normal saline 1000ML IV soln IVB ONE (23:25)
[2021-04-30] MEDS ORDERED: bisacodyl 10mg suppository rectal RC STA (00:04)
[2021-04-30] MEDS ORDERED: magnesium citrate 296ml oral solution PO ONE (00:05)
--- NOTE | 2021-04-30 01:30 | NUR ---
pt was given the suppos and laying on herleft side and I instructed her to just lay there until she has an urge. She has drank 1/4 of the bottle of mag citrate
== END 2021-04-30 02:03 | disposition home or self-care (01) ==
LOC: EDBD 16:06 → ER 16:06 → MERGE 16:06 → ER 04-30 02:03
DX: K59.00 Constipation, unspecified (principal); R19.7 Diarrhea, unspecified
CPT/HCPCS: 36415; 74018; 80053; 81001; 81025; 83690; 85025; 96360; 96361; 99284; J7030

== ENCOUNTER 2023-07-15 15:12 | Inpatient (IN) | payer MEDICAID ==
[~2023-07-15] VITALS: Ht 165.1 cm; Wt 73.0 kg
[~2023-07-15 15:12] MED LIST changes: +BUDE10.26 PO; -CIPR-202 PO; +ESTR0.5T28 PO; +MAGN400T39 PO; -MAGN500C16 PO; +MELO-100 PO; -METR-159 PO; -NICO-687 TD; -TIOT4MIS2 INH; +TIOT4MIS2 PO; +TIZA-205 PO; -TIZA4TAB5 PO
[2023-07-15] MEDS ORDERED: methylPREDNISolone sod succ 125mg/2ml vial IV ONE (16:10)
[2023-07-15] MEDS ORDERED: ipratropium 0.5 MG/2.5ML nebule IH ONE (16:10)
[2023-07-15] MEDS ORDERED: albuterol 2.5 MG/3 ML nebule NEB ONE (16:10)
[2023-07-15 16:34] VITALS: PULSE 105; RESP 21; O2SAT 96
[2023-07-15 16:43] LABS: BASOPHILS % (AUTO) 0.2 % (0-1); EOSINOPHILS % (AUTO) 0.2 % (0-6); HEMATOCRIT 38.7 % (35.0-45.0); LYMPHOCYTES # (AUTO) 0.8 X10'3 (1.1-4.8); MEAN CORPUSCULAR HEMOGLOBIN 30.8 PG (27.0-31.0); MEAN CORPUSCULAR HGB CONC 33.6 g/dL (33.0-36.5); MEAN CORPUSCULAR VOLUME 91.5 FL (78-98); MEAN PLATELET VOLUME 7.2 FL (7.4-10.4); MONOCYTES # (AUTO) 0.8 X10'3 (0-0.9); NEUTROPHILS % (AUTO) 81.6 % (42-75); PLATELET COUNT 196 X10'3 (140-440); RED BLOOD COUNT 4.23 X10'6 (4.20-5.60); RED CELL DISTRIBUTION WIDTH 14.4 % (11.5-14.5); WHITE BLOOD COUNT 8.6 X10'3 (4.5-11.0)
[2023-07-15 16:44] VITALS: PULSE 98; RESP 22; O2SAT 98
[2023-07-15 16:53] LABS: D-DIMER 3.61 MG/L FEU (0-0.50)
[2023-07-15 16:56] LABS: ALANINE AMINOTRANSFERASE 68 U/L (12-78); ALBUMIN 2.5 G/DL (3.4-5.0); ALBUMIN/GLOBULIN RATIO 0.6 (1.1-1.5); ALKALINE PHOSPHATASE 185 IU/L (46-116); ANION GAP 5 (8-16); ASPARTATE AMINO TRANSFERASE 65 U/L (10-37); BILIRUBIN,TOTAL 0.3 MG/DL (0.1-1.0); BLOOD UREA NITROGEN 16 MG/DL (7-18); CALCIUM 8.7 MG/DL (8.5-10.1); CHLORIDE 100 MMOL/L (99-107); GLUCOSE 123 MG/DL (70-104); POTASSIUM 3.7 MMOL/L (3.5-5.1); SODIUM 134 MMOL/L (135-145); TOTAL CARBON DIOXIDE 28.9 MMOL/L (24-32); TOTAL PROTEIN 6.5 G/DL (6.4-8.2); eCRCL 64 ML/MIN; eGFR 72 ML/MIN
[2023-07-15 17:05] LABS: PRO BRAIN NATRIURETIC PEPTIDE 8553 PG/ML (0-125)
[2023-07-15] MEDS ORDERED: nitroGLYCERIN 1gm ointment UD TP ONE (17:10)
[2023-07-15] MEDS ORDERED: aspirin 325mg tablet PO ONE (17:10)
[2023-07-15] MEDS ORDERED: azithromycin 250mg tablet PO ONE (17:15)
[2023-07-15] MEDS ORDERED: CefTRIAXone 2gm/D5W 50ml BAG 50 ML IV ONE (17:15)
[2023-07-15] MEDS ORDERED: iohexol 350MG/ML 100ml bottle IV ONE (17:29)
[2023-07-15] MEDS ORDERED: heparin 10,000 units/1 ML INJ IV ONE (20:35)
[2023-07-15] MEDS ORDERED: temazepam 15mg capsule PO PRN (21:00)
[2023-07-15 21:09] LABS: BASOPHILS % (AUTO) 0.1 % (0-1); EOSINOPHILS % (AUTO) 0.1 % (0-6); HEMATOCRIT 38.2 % (35.0-45.0); LYMPHOCYTES # (AUTO) 0.2 X10'3 (1.1-4.8); LYMPHOCYTES % (AUTO) 2.4 % (21-51); MEAN CORPUSCULAR HEMOGLOBIN 31.1 PG (27.0-31.0); MEAN CORPUSCULAR HGB CONC 34.2 g/dL (33.0-36.5); MEAN CORPUSCULAR VOLUME 90.8 FL (78-98); MEAN PLATELET VOLUME 7.1 FL (7.4-10.4); MONOCYTES # (AUTO) 0.2 X10'3 (0-0.9); NEUTROPHILS # (AUTO) 9.3 X10'3 (1.8-7.7); NEUTROPHILS % (AUTO) 95.4 % (42-75); PLATELET COUNT 198 X10'3 (140-440); RED CELL DISTRIBUTION WIDTH 14.3 % (11.5-14.5); WHITE BLOOD COUNT 9.7 X10'3 (4.5-11.0)
--- NOTE | 2023-07-15 21:13 | NUR ---
DAUGHTER ELEANOR [phone]
[2023-07-15 21:21] LABS: APTT 26 SECONDS (22-32); PROTHROMBIN TIME 10.4 SECONDS (9.0-12.0)
[2023-07-15] MEDS ORDERED: diphenhydrAMINE 25mg capsule PO PRN (22:00)
[2023-07-15] MEDS ORDERED: mag hydrox/Alum hydrox/simeth 30ml oral suspension PO PRN (22:00)
[2023-07-15] MEDS ORDERED: ondansetron/PF 4mg/2ml inj IV PRN (22:00)
[2023-07-15] MEDS ORDERED: diphenhydrAMINE 50 mg/ml inj IV PRN (22:00)
[2023-07-15] MEDS ORDERED: normal saline 1000ml 1,000 ML IV SCH (22:00)
[2023-07-15] MEDS ORDERED: magnesium hydroxide 30ml (MOM) UD suspension PO PRN (22:00)
[2023-07-15] MEDS ORDERED: furosemide 10 MG/1 ML 10ml inj IV ONE (22:05)
[2023-07-15] MEDS ORDERED: nicotine 21mg patch - 24 hr TD ONE (22:10)
[2023-07-15 22:26] LABS: HEMOGLOBIN A1C 5.9 % (4.5-6.2)
[2023-07-15 22:27] LABS: MAGNESIUM 1.9 MG/DL (1.5-2.4); PHOSPHORUS 2.4 MG/DL (2.3-4.5)
[2023-07-15] MEDS: heparin 25,000 UNIT/250ml bag 250 ML IV PRN (22:40)
--- NOTE | 2023-07-15 23:00 | NUR ---
unable to get second line on pt
[2023-07-15 23:45] VITALS: PULSE 94; RESP 20; O2SAT 91
[2023-07-15] MEDS: ipratropium/albuterol 3ml nebule NEB PRN (23:45)
[2023-07-15 23:55] VITALS: PULSE 92; RESP 20
[2023-07-16] VITALS (8 sets, daily range): BP systolic 132–148; BP diastolic 85–89; PULSE 84–110; RESP 14–20; TEMP 97.5–98.4; O2SAT 92–95
--- NOTE | 2023-07-16 00:43 | NUR ---
pt requested food, given turkey sandwhich & apple juice.
--- NOTE | 2023-07-16 00:50 | NUR ---
pt placed on hospital bed for comfort.
[2023-07-16 04:39] LABS: BASOPHILS % (AUTO) 0 % (0-1); EOSINOPHILS % (AUTO) 0.1 % (0-6); HEMATOCRIT 35.5 % (35.0-45.0); HEMOGLOBIN 11.9 g/dl (12.0-16.0); LYMPHOCYTES # (AUTO) 0.4 X10'3 (1.1-4.8); LYMPHOCYTES % (AUTO) 4.5 % (21-51); MEAN CORPUSCULAR HEMOGLOBIN 30.5 PG (27.0-31.0); MEAN CORPUSCULAR HGB CONC 33.6 g/dL (33.0-36.5); MEAN CORPUSCULAR VOLUME 90.8 FL (78-98); MEAN PLATELET VOLUME 7.3 FL (7.4-10.4); MONOCYTES # (AUTO) 0.4 X10'3 (0-0.9); NEUTROPHILS # (AUTO) 7.2 X10'3 (1.8-7.7); NEUTROPHILS % (AUTO) 90.4 % (42-75); PLATELET COUNT 206 X10'3 (140-440); RED BLOOD COUNT 3.91 X10'6 (4.20-5.60); RED CELL DISTRIBUTION WIDTH 14.1 % (11.5-14.5)
[2023-07-16 04:48] LABS: ALANINE AMINOTRANSFERASE 61 U/L (12-78); ALBUMIN 2.2 G/DL (3.4-5.0); ALBUMIN/GLOBULIN RATIO 0.6 (1.1-1.5); ALKALINE PHOSPHATASE 162 IU/L (46-116); ANION GAP 5 (8-16); ASPARTATE AMINO TRANSFERASE 43 U/L (10-37); BILIRUBIN,TOTAL 0.2 MG/DL (0.1-1.0); BLOOD UREA NITROGEN 20 MG/DL (7-18); BUN/CREATININE RATIO 25.3 (10.0-20.0); CALCIUM 8.4 MG/DL (8.5-10.1); CHLORIDE 100 MMOL/L (99-107); CHOL/HDL RATIO 3.3 (0.00-4.99); CHOLESTEROL 153 MG/DL (0-200); CREATININE 0.79 MG/DL (0.40-0.90); GLUCOSE 203 MG/DL (70-104); HDL CHOLESTEROL 47 MG/DL (35-60); LDL CHOLESTEROL 78 MG/DL (50-100); POTASSIUM 3.5 MMOL/L (3.5-5.1); SODIUM 135 MMOL/L (135-145); TOTAL CARBON DIOXIDE 30.4 MMOL/L (24-32); TRIGLYCERIDES 111 MG/DL (20-135); eCRCL 65 ML/MIN; eGFR 73 ML/MIN
--- NOTE | 2023-07-16 05:19 | NUR ---
this RN sent cardiac PTT lab at 0426 to lab, still no results or pending results. called lab & was told that they will run blood now.
[2023-07-16] MEDS: heparin 25,000 UNIT/250ml bag 250 ML IV PRN (06:29)
--- NOTE | 2023-07-16 06:30 | NUR ---
THIS RN HANDED OFF HEPARIN GTT TO DEB SCHMIDT. LABS AND GTT RATE REVIEWED TOGETHER WITH PROTOCOL. GTT RESTARTED PER PROTOCOL.
--- NOTE | 2023-07-16 06:43 | NUR ---
Verified Heparin drip during report. Heparin drip restarted @0630, Heprin decreased to 700 u/hr from 900 u/hr.
[2023-07-16] MEDS ORDERED: nicotine 21mg patch - 24 hr TD SCH (07:10)
[2023-07-16] MEDS: levoTHYROXINE 88mcg tablet PO SCH (07:55)
[2023-07-16] MEDS: docusate sod 100mg capsule PO SCH ×2 (07:55→20:50)
[2023-07-16] MEDS: lisinopril 20mg tablet PO SCH (07:58)
[2023-07-16] MEDS: aspirin 81mg, enteric-coated 1 TAB TABLET.DR PO SCH (07:58)
[2023-07-16] MEDS: methylPREDNISolone sod succ 125mg/2ml vial IV SCH ×2 (07:59→20:49)
[2023-07-16] MEDS ORDERED: diltiazem CD 120mg capsule (once-daily) PO SCH (08:00)
[2023-07-16] MEDS ORDERED: nitroGLYCERIN 0.1mg/hour patch TD SCH (08:00)
[2023-07-16 08:27] LABS: THYROID STIMULATING HORMONE 1.39 ulU/ml (0.34-4.50)
[2023-07-16] MEDS: bisacodyl 10mg suppository rectal RC PRN (09:54)
[2023-07-16] MEDS: ipratropium/albuterol 3ml nebule NEB PRN ×2 (11:21→19:28)
[2023-07-16] MEDS: heparin 10,000 units/1 ML INJ IV PRN ×2 (13:42→22:55)
[2023-07-16] MEDS: diltiazem CD 120mg capsule (once-daily) PO SCH (14:02)
--- NOTE | 2023-07-16 16:35 | NUR ---
Patient in room ED 16. I have received report from Radha MCNEIL RN and had the opportunity to ask questions and assume patient care.
[2023-07-16] MEDS ORDERED: amLODIPine 5mg tablet PO PRN (17:00)
--- NOTE | 2023-07-16 18:47 | NUR ---
Problems reprioritized. Patient report given, questions answered & plan of care reviewed with Chayo BOYD.
--- NOTE | 2023-07-16 18:50 | NUR ---
Patient in room PCU 3024. I have received report from Eusebio BOYD and had the opportunity to ask questions and assume patient care.
[2023-07-16] MEDS: furosemide 40mg/4ml inj IV SCH (20:49)
[2023-07-16] MEDS: nortriptyline 25mg capsule PO SCH (20:50)
[2023-07-16] MEDS: oxyCODONE/APAP 5-325mg tablet PO PRN (23:14)
[2023-07-16] MEDS: tizanidine 4mg tablet PO PRN (23:14)
[2023-07-16] MEDS: pravastatin 40mg tablet PO SCH (23:14)
[2023-07-17] VITALS (12 sets, daily range): BP systolic 104–148; BP diastolic 61–95; PULSE 50–148; RESP 16–20; TEMP 97.5–98.1; O2SAT 92–99
[2023-07-17] MEDS: heparin 25,000 UNIT/250ml bag 250 ML IV PRN (04:28)
[2023-07-17 05:57] LABS: BASOPHILS % (AUTO) 0.1 % (0-1); EOSINOPHILS % (AUTO) 0 % (0-6); HEMATOCRIT 35.2 % (35.0-45.0); HEMOGLOBIN 11.9 g/dl (12.0-16.0); LYMPHOCYTES # (AUTO) 0.4 X10'3 (1.1-4.8); LYMPHOCYTES % (AUTO) 5.7 % (21-51); MEAN CORPUSCULAR HEMOGLOBIN 30.7 PG (27.0-31.0); MEAN CORPUSCULAR HGB CONC 33.7 g/dL (33.0-36.5); MEAN CORPUSCULAR VOLUME 90.9 FL (78-98); MEAN PLATELET VOLUME 8.1 FL (7.4-10.4); MONOCYTES # (AUTO) 0.3 X10'3 (0-0.9); MONOCYTES % (AUTO) 3.9 % (2-12); NEUTROPHILS # (AUTO) 6.9 X10'3 (1.8-7.7); NEUTROPHILS % (AUTO) 90.3 % (42-75); PLATELET COUNT 237 X10'3 (140-440); RED BLOOD COUNT 3.88 X10'6 (4.20-5.60); RED CELL DISTRIBUTION WIDTH 14.1 % (11.5-14.5); WHITE BLOOD COUNT 7.6 X10'3 (4.5-11.0)
--- NOTE | 2023-07-17 06:15 | NUR ---
Problems reprioritized. Patient report given, questions answered & plan of care reviewed with Eusebio BOYD.
--- NOTE | 2023-07-17 06:27 | NUR ---
Patient in room PCU 3024. I have received report from Chayo BOYD and had the opportunity to ask questions and assume patient care.
[2023-07-17 06:56] LABS: ALANINE AMINOTRANSFERASE 52 U/L (12-78); ALBUMIN 2.4 G/DL (3.4-5.0); ALBUMIN/GLOBULIN RATIO 0.6 (1.1-1.5); ALKALINE PHOSPHATASE 148 IU/L (46-116); ANION GAP 9 (8-16); ASPARTATE AMINO TRANSFERASE 25 U/L (10-37); BILIRUBIN,TOTAL 0.3 MG/DL (0.1-1.0); BLOOD UREA NITROGEN 25 MG/DL (7-18); BUN/CREATININE RATIO 31.3 (10.0-20.0); CALCIUM 9.1 MG/DL (8.5-10.1); CHLORIDE 97 MMOL/L (99-107); GLUCOSE 175 MG/DL (70-104); POTASSIUM 3.3 MMOL/L (3.5-5.1); SODIUM 136 MMOL/L (135-145); TOTAL CARBON DIOXIDE 30.5 MMOL/L (24-32); TOTAL PROTEIN 6.3 G/DL (6.4-8.2); eCRCL 64 ML/MIN; eGFR 72 ML/MIN
[2023-07-17] MEDS: ipratropium/albuterol 3ml nebule NEB PRN ×2 (07:15→19:37)
[2023-07-17] MEDS: lisinopril 20mg tablet PO SCH (08:00)
--- NOTE | 2023-07-17 08:13 | NUR ---
Dr Kee ordered that the Heparin gtt be DC'd. I am stopping it now.
[2023-07-17] MEDS: aspirin 81mg, enteric-coated 1 TAB TABLET.DR PO SCH (08:14)
[2023-07-17] MEDS: diltiazem CD 120mg capsule (once-daily) PO SCH (08:15)
[2023-07-17] MEDS: docusate sod 100mg capsule PO SCH ×2 (08:15→20:53)
[2023-07-17] MEDS: furosemide 40mg/4ml inj IV SCH ×2 (08:16→20:56)
[2023-07-17] MEDS: methylPREDNISolone sod succ 125mg/2ml vial IV SCH ×2 (08:16→20:56)
[2023-07-17] MEDS: levoTHYROXINE 88mcg tablet PO SCH (08:16)
[2023-07-17] MEDS ORDERED: magnesium 2GM in 50ml NS 50 ML IV PRN (10:30)
[2023-07-17] MEDS ORDERED: magnesium 4gm in 100ml NS 100 ML IV PRN (10:30)
[2023-07-17] MEDS ORDERED: potassium Cl 40MEQ/1/2NS 520ml 520 ML IV PRN (10:30)
[2023-07-17] MEDS ORDERED: magnesium Cl slow-release 64mg tablet PO PRN (10:30)
[2023-07-17] MEDS ORDERED: potassium Cl 20 mEq SR tablet PO PRN (10:30)
[2023-07-17] MEDS: potassium Cl 20 mEq SR tablet PO PRN ×3 (10:58→20:55)
--- NOTE | 2023-07-17 18:41 | NUR ---
Problems reprioritized. Patient report given, questions answered & plan of care reviewed with Asha BOYD.
[2023-07-17] MEDS: pravastatin 40mg tablet PO SCH (20:54)
[2023-07-17] MEDS: nortriptyline 25mg capsule PO SCH (20:54)
[2023-07-17] MEDS: K and/or MAG REPLACEMENT MC SCH (20:55)
[2023-07-17] MEDS ORDERED: diltiazem 5mg/ml 5ml inj. IV ONE (22:25)
--- NOTE | 2023-07-17 22:25 | NUR ---
PT HEART RATE SUSTAINING IN 170'S TO 180'S WITH A RHYTHM OF ATRIAL FIBRILLATION DR HOOKS NOTIFIED NEW ORDERS WRITTEN.
[2023-07-18] VITALS (12 sets, daily range): BP systolic 132–156; BP diastolic 77–98; PULSE 84–110; RESP 16–20; TEMP 97.7–98.6; O2SAT 89–96
[2023-07-18] MEDS: tizanidine 4mg tablet PO PRN ×2 (01:50→23:28)
[2023-07-18] MEDS: oxyCODONE/APAP 5-325mg tablet PO PRN ×2 (01:52→23:29)
--- NOTE | 2023-07-18 04:32 | NUR ---
Problems reprioritized. Patient report given, questions answered & plan of care reviewed with Eusebio.
--- NOTE | 2023-07-18 04:32 | NUR ---
Problems reprioritized. Patient report given, questions answered & plan of care reviewed with Eusebio.
--- NOTE | 2023-07-18 06:13 | NUR ---
Patient in room PCU 3024. I have received report from Nicole BOYD and had the opportunity to ask questions and assume patient care.
[2023-07-18 06:53] LABS: BASOPHILS % (AUTO) 0.1 % (0-1); EOSINOPHILS % (AUTO) 0 % (0-6); HEMATOCRIT 37.9 % (35.0-45.0); HEMOGLOBIN 12.8 g/dl (12.0-16.0); LYMPHOCYTES # (AUTO) 0.4 X10'3 (1.1-4.8); LYMPHOCYTES % (AUTO) 4.9 % (21-51); MEAN CORPUSCULAR HEMOGLOBIN 30.5 PG (27.0-31.0); MEAN CORPUSCULAR HGB CONC 33.7 g/dL (33.0-36.5); MEAN CORPUSCULAR VOLUME 90.4 FL (78-98); MEAN PLATELET VOLUME 7.3 FL (7.4-10.4); MONOCYTES # (AUTO) 0.6 X10'3 (0-0.9); MONOCYTES % (AUTO) 6.7 % (2-12); NEUTROPHILS # (AUTO) 7.2 X10'3 (1.8-7.7); NEUTROPHILS % (AUTO) 88.3 % (42-75); PLATELET COUNT 316 X10'3 (140-440); RED BLOOD COUNT 4.19 X10'6 (4.20-5.60); RED CELL DISTRIBUTION WIDTH 14.2 % (11.5-14.5); WHITE BLOOD COUNT 8.2 X10'3 (4.5-11.0)
[2023-07-18 07:27] LABS: ALANINE AMINOTRANSFERASE 49 U/L (12-78); ALBUMIN 2.7 G/DL (3.4-5.0); ALBUMIN/GLOBULIN RATIO 0.7 (1.1-1.5); ALKALINE PHOSPHATASE 142 IU/L (46-116); ANION GAP 5 (8-16); ASPARTATE AMINO TRANSFERASE 14 U/L (10-37); BILIRUBIN,TOTAL 0.4 MG/DL (0.1-1.0); BLOOD UREA NITROGEN 33 MG/DL (7-18); BUN/CREATININE RATIO 42.3 (10.0-20.0); CALCIUM 9.2 MG/DL (8.5-10.1); CHLORIDE 95 MMOL/L (99-107); CREATININE 0.78 MG/DL (0.40-0.90); GLUCOSE 176 MG/DL (70-104); POTASSIUM 3.4 MMOL/L (3.5-5.1); SODIUM 135 MMOL/L (135-145); TOTAL PROTEIN 6.7 G/DL (6.4-8.2); eCRCL 66 ML/MIN; eGFR 74 ML/MIN
[2023-07-18] MEDS: levoTHYROXINE 88mcg tablet PO SCH (08:41)
[2023-07-18] MEDS: aspirin 81mg, enteric-coated 1 TAB TABLET.DR PO SCH (08:42)
[2023-07-18] MEDS: potassium Cl 20 mEq SR tablet PO PRN ×3 (08:42→22:27)
[2023-07-18] MEDS: docusate sod 100mg capsule PO SCH ×2 (08:43→20:04)
[2023-07-18] MEDS: diltiazem CD 180mg cap (once-daily) PO SCH (08:44)
[2023-07-18] MEDS: methylPREDNISolone sod succ 125mg/2ml vial IV SCH ×2 (08:48→20:09)
[2023-07-18] MEDS: furosemide 40mg/4ml inj IV SCH ×2 (08:48→20:12)
[2023-07-18] MEDS: K and/or MAG REPLACEMENT MC SCH ×2 (08:56→20:00)
[2023-07-18] MEDS: albuterol 2.5 MG/3 ML nebule NEB PRN (10:52)
[2023-07-18] MEDS ORDERED: magnesium oxide 400mg tablet PO ONE (10:55)
--- NOTE | 2023-07-18 18:24 | NUR ---
Problems reprioritized. Patient report given, questions answered & plan of care reviewed with Asha BOYD.
[2023-07-18] MEDS: ipratropium/albuterol 3ml nebule NEB PRN (19:25)
[2023-07-18] MEDS: pravastatin 40mg tablet PO SCH (20:06)
[2023-07-18] MEDS: nortriptyline 25mg capsule PO SCH (20:07)
[2023-07-18] MEDS ORDERED: nystatin 500,000 unit/5ML UD oral suspension PO PRN (23:05)
--- NOTE | 2023-07-18 23:59 | NUR ---
pt complained of having oral thrush,MD was notified and nystatin oral suspension was ordered to swab the inner mouth of the pt q4hrs prn ,as pt (per pt's report) does not swallow or rinse mouth with any liquid med ,because it causes uncomfortable gag reflex and sometimes nausea /vomiting.
[2023-07-19 02:00] VITALS: BP_SYST 121; BP_SYST 140; BP_DIAS 52; BP_DIAS 82; PULSE 85; PULSE 96; RESP 18; RESP 19; TEMP 97.4; TEMP 98.5; O2SAT 90; O2SAT 93
--- NOTE | 2023-07-19 06:30 | NUR ---
Problems reprioritized. Patient report given, questions answered & plan of care reviewed with Lila.
[2023-07-19 07:00] VITALS: BP 148/92; PULSE 88; RESP 15; TEMP 97.7; O2SAT 96
[2023-07-19] MEDS: docusate sod 100mg capsule PO SCH (07:39)
[2023-07-19] MEDS: levoTHYROXINE 88mcg tablet PO SCH (07:39)
[2023-07-19] MEDS: diltiazem CD 180mg cap (once-daily) PO SCH (07:39)
[2023-07-19] MEDS: aspirin 81mg, enteric-coated 1 TAB TABLET.DR PO SCH (07:39)
[2023-07-19] MEDS: K and/or MAG REPLACEMENT MC SCH (08:00)
[2023-07-19 08:54] LABS: BASOPHILS % (AUTO) 0.2 % (0-1); EOSINOPHILS % (AUTO) 0 % (0-6); HEMATOCRIT 43.8 % (35.0-45.0); HEMOGLOBIN 14.7 g/dl (12.0-16.0); LYMPHOCYTES # (AUTO) 0.7 X10'3 (1.1-4.8); LYMPHOCYTES % (AUTO) 6.1 % (21-51); MEAN CORPUSCULAR HEMOGLOBIN 30.5 PG (27.0-31.0); MEAN CORPUSCULAR HGB CONC 33.6 g/dL (33.0-36.5); MEAN CORPUSCULAR VOLUME 90.6 FL (78-98); MONOCYTES % (AUTO) 9.1 % (2-12); NEUTROPHILS # (AUTO) 9.5 X10'3 (1.8-7.7); NEUTROPHILS % (AUTO) 84.6 % (42-75); PLATELET COUNT 338 X10'3 (140-440); RED BLOOD COUNT 4.83 X10'6 (4.20-5.60); RED CELL DISTRIBUTION WIDTH 14.2 % (11.5-14.5); WHITE BLOOD COUNT 11.2 X10'3 (4.5-11.0)
[2023-07-19] MEDS: furosemide 40mg/4ml inj IV SCH (09:17)
[2023-07-19] MEDS: methylPREDNISolone sod succ 125mg/2ml vial IV SCH (09:18)
[2023-07-19 09:31] LABS: ALANINE AMINOTRANSFERASE 41 U/L (12-78); ALBUMIN 3.1 G/DL (3.4-5.0); ALBUMIN/GLOBULIN RATIO 0.7 (1.1-1.5); ALKALINE PHOSPHATASE 154 IU/L (46-116); ANION GAP 7 (8-16); ASPARTATE AMINO TRANSFERASE 14 U/L (10-37); BILIRUBIN,TOTAL 0.5 MG/DL (0.1-1.0); BLOOD UREA NITROGEN 37 MG/DL (7-18); BUN/CREATININE RATIO 38.5 (10.0-20.0); CALCIUM 9.7 MG/DL (8.5-10.1); CHLORIDE 92 MMOL/L (99-107); CREATININE 0.96 MG/DL (0.40-0.90); GLUCOSE 143 MG/DL (70-104); POTASSIUM 4.1 MMOL/L (3.5-5.1); SODIUM 132 MMOL/L (135-145); TOTAL CARBON DIOXIDE 32.6 MMOL/L (24-32); TOTAL PROTEIN 7.5 G/DL (6.4-8.2); eCRCL 53 ML/MIN; eGFR 59 ML/MIN
--- NOTE | 2023-07-19 10:12 | NUR ---
O2 Sat at rest on room air:86% If below 89%: Recovery O2 Sat at rest on 1.5 LPM: 92% via nasal cannula No further documentation is necessary.
[2023-07-19] MEDS: bisacodyl 10mg suppository rectal RC PRN (10:16)
[2023-07-19 11:00] VITALS: BP 138/98; PULSE 92; RESP 20; TEMP 98.1; O2SAT 95
[2023-07-19] MEDS ORDERED: ASPI-1071 PO (11:05)
[2023-07-19] MEDS ORDERED: FURO-150 PO (11:08)
[2023-07-19] MEDS ORDERED: PRED10TA PO (13:08)
[2023-07-19] MEDS ORDERED: CLOP-32 PO (14:08)
--- NOTE | 2023-07-19 14:25 | NUR ---
Patient discharged home with all belongings and discharge instructions. IV removed and tele monitor removed and returned to teletypewriter installer. Escorted out via wheel chair and left in private vehicle.
[2023-07-19] MEDS ORDERED: DILT-91 PO (17:03)
== END 2023-07-19 14:25 | disposition home or self-care (01) | DRG 201 ==
LOC: ER 15:12 → ED HOLD 22:05 → PCU 3S 07-16 16:47
PROVIDERS: ADMIT Family Medicine; ATTEND Internal Medicine
PROC: B32T1ZZ Computerized Tomography (CT Scan) of Left Pulmonary Artery using Low Osmolar Contrast (ICD-10-PCS; principal; 2023-07-15)
PROC: B3201ZZ Computerized Tomography (CT Scan) of Thoracic Aorta using Low Osmolar Contrast (ICD-10-PCS; 2023-07-15)
PROC: B32S1ZZ Computerized Tomography (CT Scan) of Right Pulmonary Artery using Low Osmolar Contrast (ICD-10-PCS; 2023-07-15)
DX: I48.0 Paroxysmal atrial fibrillation (principal); J96.01 Acute respiratory failure with hypoxia; I50.33 Acute on chronic diastolic (congestive) heart failure; I21.A1 Myocardial infarction type 2; J18.9 Pneumonia, unspecified organism; I13.0 Hypertensive heart and chronic kidney disease with heart failure and stage 1 through stage 4 chronic kidney disease, or unspecified chronic kidney disease; I71.20 Thoracic aortic aneurysm, without rupture, unspecified; E78.5 Hyperlipidemia, unspecified; J44.1 Chronic obstructive pulmonary disease with (acute) exacerbation; I95.9 Hypotension, unspecified; K76.1 Chronic passive congestion of liver; I25.10 Atherosclerotic heart disease of native coronary artery without angina pectoris; M19.90 Unspecified osteoarthritis, unspecified site; N18.9 Chronic kidney disease, unspecified; J44.0 Chronic obstructive pulmonary disease with (acute) lower respiratory infection; G89.4 Chronic pain syndrome; I73.9 Peripheral vascular disease, unspecified; K21.9 Gastro-esophageal reflux disease without esophagitis; E03.9 Hypothyroidism, unspecified; I71.40 Abdominal aortic aneurysm, without rupture, unspecified; J95.89 Other postprocedural complications and disorders of respiratory system, not elsewhere classified; J98.11 Atelectasis; I65.23 Occlusion and stenosis of bilateral carotid arteries; K59.00 Constipation, unspecified; Y83.8 Other surgical procedures as the cause of abnormal reaction of the patient, or of later complication, without mention of misadventure at the time of the procedure; I08.1 Rheumatic disorders of both mitral and tricuspid valves; Z82.49 Family history of ischemic heart disease and other diseases of the circulatory system; Z83.518 Family history of other specified eye disorder; Z79.899 Other long term (current) drug therapy; Z90.710 Acquired absence of both cervix and uterus; Z90.49 Acquired absence of other specified parts of digestive tract; Z98.891 History of uterine scar from previous surgery; Z88.6 Allergy status to analgesic agent; Z72.0 Tobacco use; I25.2 Old myocardial infarction; Z71.6 Tobacco abuse counseling; Y92.89 Other specified places as the place of occurrence of the external cause
CPT/HCPCS: 36415; 71045; 71275; 80053; 80061; 83036; 83605; 83735; 83880; 84100; 84443; 84484; 85025; 85379; 85610; 85730; 87040; 87081; 93306; 93880; 93970; 94640; 94664; 94668; 94760; 99285; A5200; C2617; G0378; J0696; J1644; J1940; J2930; J3490; J7030; Q9967

== ENCOUNTER 2024-03-04 13:01 | Emergency (ER) | payer MEDICAID ==
[~2024-03-04] VITALS: Ht 160 cm; Wt 52.3 kg
[~2024-03-04 13:01] MED LIST changes: +ASPI-1071 PO; +CLOP-32 PO; +DILT-91 PO; -DILT120C19 PO; +FURO-150 PO; -LISI20TA28 PO; +PRED10TA PO
[2024-03-04 13:05] VITALS: TEMP 98.6
[2024-03-04] MEDS ORDERED: MELO-100 PO (15:15)
[2024-03-04 15:36] VITALS: BP 103/73; PULSE 97; RESP 16; O2SAT 98
== END 2024-03-04 15:48 | disposition home or self-care (01) ==
LOC: ER 13:02
DX: S32.010A Wedge compression fracture of first lumbar vertebra, initial encounter for closed fracture (principal); S32.050A Wedge compression fracture of fifth lumbar vertebra, initial encounter for closed fracture; S60.212A Contusion of left wrist, initial encounter; G89.29 Other chronic pain; Z88.8 Allergy status to other drugs, medicaments and biological substances; Z79.82 Long term (current) use of aspirin; Z79.899 Other long term (current) drug therapy; I10 Essential (primary) hypertension; J44.9 Chronic obstructive pulmonary disease, unspecified; E03.9 Hypothyroidism, unspecified; Z90.49 Acquired absence of other specified parts of digestive tract; Z98.891 History of uterine scar from previous surgery; Z90.710 Acquired absence of both cervix and uterus; I25.10 Atherosclerotic heart disease of native coronary artery without angina pectoris; W19.XXXA Unspecified fall, initial encounter; Y93.9 Activity, unspecified; Y92.89 Other specified places as the place of occurrence of the external cause; Y99.8 Other external cause status
CPT/HCPCS: 72100; 72131; 73110; 90471; 96372; 99284